=== PATIENT | female | born 1980 | race Caucasian/White ===

== ENCOUNTER 2023-06-09 16:07 | Emergency (ER) | payer OTHER, SELFPAY ==
[2023-06-09] VITALS (19 sets, daily range): BP systolic 115–134; BP diastolic 86–96; PULSE 78–111; RESP 12–26; TEMP 36.9; O2SAT 95–98; BMI 29.5
--- NOTE | 2023-06-09 16:51 | ECG_ITS ---
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
--- NOTE | 2023-06-09 16:52 | ED.CHESTPAI1 ---
HPI - Chest Pain General Chief Complaint: Chest Pain Stated Complaint: HEARTBURN Time Seen by Provider: 06/09/23 16:08 Source: patient Mode of arrival: walk-in Limitations: no limitations History of Present Illness HPI narrative: Patient is a 42-year-old female who presents to the emergency department for discomfort in the chest over the last several days. Patient states 2 to 3 days ago she developed a mild cough and then burning in the chest and throat. She states she was diagnosed with acid reflux years ago but does not take any daily medications for this. She states she has been throwing up acid and over the last day she has developed worsening chest discomfort across the entire chest that she describes as a squeezing. She still has a sensation of acid in the throat. She denies fevers, diarrhea. No shortness of breath. She has been using [id number] Tums without improvement. She is not concerned for . Related Data Previous Rx's Medication Instructions Recorded ondansetron 4 mg disintegrating 4 mg PO Q6H PRN nausea and 06/09/23 tablet vomiting #12 tabs pantoprazole 40 mg tablet,delayed 40 mg PO DAILY #7 tabs 06/09/23 release (Protonix) sucralfate 1 gram tablet (Carafate) 1 g PO Q6H PRN abdominal pain #12 06/09/23 tabs Allergies Allergy/AdvReac Type Severity Reaction Status Date / Time cephalexin [From Keflex] Allergy Unknown Verified 06/09/23 16:13 oxycodone Allergy Unknown Verified 06/09/23 16:13 Sulfa (Sulfonamide Allergy Unknown Verified 06/09/23 16:13 Antibiotics) Review of Systems ROS Constitutional Denies: fever or chills Ears, nose, mouth, and throat Reports: throat pain; Denies: nasal congestion Cardiovascular Reports: chest pain Respiratory Reports: cough; Denies: shortness of breath Gastrointestinal Reports: nausea and vomiting; Denies: abdominal pain or diarrhea Musculoskeletal Denies: back pain Integumentary/Breast Denies: rash Neurological Denies: headache Hematologic/Lymphatic Denies: easy bruising Exam Narrative Exam Narrative: Gen.: Awake, alert, in no distress Head: Normocephalic, atraumatic ENT: Moist mucous membranes Respiratory: No respiratory distress, lungs clear bilaterally Cardio: Regular rate and rhythm Gastrointestinal: Abdomen is soft, nondistended and nontender to palpation Extremities: Moves extremities equally Psych: Normal mood and affect Neuro: No focal neuro deficit Skin: Warm, dry, intact Constitutional Vital Signs, click to edit/add: Last Vital Signs Temp 98.5 F 06/09/23 16:13 Pulse 94 H 06/09/23 17:30 Resp 17 06/09/23 17:30 BP 127/88 06/09/23 17:30 Pulse Ox 98 06/09/23 16:13 O2 Del Method Room Air 06/09/23 16:13 Course Vital Signs Vital signs: Vital Signs Temperature 98.5 F 06/09/23 16:13 Pulse Rate 111 H 06/09/23 16:13 Respiratory Rate 18 06/09/23 16:13 Blood Pressure 124/96 H 06/09/23 16:13 Pulse Oximetry 98 06/09/23 16:13 Oxygen Delivery Method Room Air 06/09/23 16:13 Temperature 98.5 F 06/09/23 16:13 Pulse Rate 94 H 06/09/23 17:30 Respiratory Rate 17 06/09/23 17:30 Blood Pressure 127/88 06/09/23 17:30 Pulse Oximetry 98 06/09/23 16:13 Oxygen Delivery Method Room Air 06/09/23 16:13 MDM - Chest Pain MDM Narrative Medical decision making narrative: Lab studies including D-dimer and troponin are within normal limits. LFTs and lipase are also normal. No EKG changes noted, chest x-ray is unremarkable. Patient was treated with GI cocktail, Protonix, Carafate. Her vital signs are stable, abdomen is soft and benign and she is in no respiratory distress. She was reevaluated by attending physician prior to discharge and will be discharged home with Protonix, Carafate, Zofran. Follow-up with PCP and return to the ER if symptoms change or worsen. Medical Records Data Attestation: I reviewed the patient's medical records. Lab Data Attestation: I reviewed the patient's lab results. Labs: Lab Results 06/09/23 Range/Units 17:00 WBC 16.4 H (4.0-11.0) 10^3/uL RBC 4.64 (4.20-5.40) 10^6/uL Hgb 14.8 (12.0-16.0) g/dL Hct 44.1 (36.0-48.0) % MCV 95.0 (81.0-99.0) fL MCH 31.9 (26.7-34.0) pg MCHC 33.6 (29.9-35.2) g/dL RDW 14.1 (11.0-15.0) % Plt Count 335 (150-450) 10^3/uL MPV 9.0 L (9.5-13.5) fL Seg Neuts % (Manual) 60.0 Band Neutrophils % 2.0 (0-5) % Lymphocytes % (Manual) 22.0 (20.5-60.0) % Atypical Lymphs % (Man) 6.0 % Monocytes % (Manual) 10.0 (1.7-12.0) % Eosinophils % (Manual) 0.0 L (0.9-7.0) % Basophils % (Manual) 0.0 L (0.2-2.0) % Neutrophils # (Manual) 9.84 H (1.4-6.5) 10^3/uL Band Neutrophils # 0.3 (0.0-0.3) 10^3/uL Lymphocytes # (Manual) 3.60 (1.20-3.80) 10^3/uL Abs Atypical Lymphs Man 1.0 Monocytes # (Manual) 1.64 H (0.30-0.80) 10^3/uL Eosinophils # (Manual) 0.00 (0.00-0.70) 10^3/uL Basophils # (Manual) 0.00 (0.00-0.10) 10^3/uL Anisocytosis 1+ D-Dimer 0.34 (<=0.59) mg/L FEU Sodium 137 (136-145) mmol/L Potassium 3.9 (3.5-5.1) mmol/L Chloride 99 (98-107) mmol/L Carbon Dioxide 28.4 (21.0-32.0) mmol/L Anion Gap 13.5 BUN 22.0 H (7.0-18.0) mg/dL Creatinine 0.88 (0.55-1.02) mg/dL Est GFR ( Amer) >60 (>=60) Est GFR (Non-Af Amer) >60 (>=60) BUN/Creatinine Ratio 25.0 Glucose 95 (74-106) mg/dL Calcium 9.0 (8.5-10.1) mg/dL Total Bilirubin 0.3 (0.2-1.0) mg/dL AST 14 L (15-37) U/L ALT 26 (14-59) U/L Alkaline Phosphatase 106 (46-116) U/L Troponin I High Sens <4.0 L (4.0-51.3) pg/mL Total Protein 7.8 (6.4-8.2) g/dL Albumin 3.7 (3.4-5.0) g/dL Globulin 4.1 g/dL Albumin/Globulin Ratio 0.9 Lipase 33.0 (16.0-77.0) U/L Serum HCG, Qual Negative (NEGATIVE) Imaging Data Chest x-ray: Attestation: I have reviewed the pertinent imaging results. ECG Data Attestation: I personally reviewed and interpreted this ECG as follows: (Normal sinus with him at a rate of 99, no acute ST elevation or ectopy. EKG reviewed by attending physician) Heart Score History: Slightly/Non-Suspicious ECG: Normal Age: <45 years Risk Factors: 1 or 2 Risk Factors Troponin: <Normal Limit Total Heart Score Recommendations & Risks:: 1 Discharge Plan Discharge Chief Complaint: Chest Pain Clinical Impression: Esophagitis, Chest pain Patient Disposition: Home, Self-Care Time of Disposition Decision: 18:31 Condition: Good Prescriptions / Home Meds: New sucralfate [Carafate] 1 gram tablet 1 g PO Q6H PRN (Reason: abdominal pain) Qty: 12 0RF pantoprazole [Protonix] 40 mg tablet,delayed release (DR/EC) 40 mg PO DAILY Qty: 7 0RF ondansetron 4 mg tablet,disintegrating 4 mg PO Q6H PRN (Reason: nausea and vomiting) Qty: 12 0RF Instructions: Chest Pain (DC), Esophagitis (ED) Stand Alone Forms: Portal Instructions Referrals: Katja Ramachandran NP [Primary Care Provider] - 1 week
[2023-06-09 17:13] LABS: Hematocrit 44.1 % (36.0-48.0); Hemoglobin 14.8 g/dL (12.0-16.0); Mean Corpuscular HGB Conc 33.6 g/dL (29.9-35.2); Mean Corpuscular Hemoglobin 31.9 pg (26.7-34.0); Platelet Count 335 10^3/uL (150-450); Red Blood Count 4.64 10^6/uL (4.20-5.40); Red Cell Distribution Width 14.1 % (11.0-15.0); White Blood Count 16.4 10^3/uL (4.0-11.0)
[2023-06-09] MEDS: lidocaine HCL 15 ML, MAG HYDROX/ALUMINUM HYD/SIMETH 30 ML, HYOSCYAMINE SULFATE 0.25 MG PO (17:13)
[2023-06-09] MEDS: PANTOPRAZOLE SODIUM 40 MG VIAL IV (17:13)
[2023-06-09 17:24] LABS: Anisocytosis 1+; Band Neutrophils Absolute 0.3 10^3/uL (0.0-0.3); D Dimer 0.34 mg/L FEU (<=0.59); Monocytes Absolute Manual 1.64 10^3/uL (0.30-0.80); Segmented Neut Absolute Manual 9.84 10^3/uL (1.4-6.5)
[2023-06-09 17:26] LABS: Alanine Aminotransferase 26 U/L (14-59); Albumin Globulin Ratio 0.9; Albumin Level 3.7 g/dL (3.4-5.0); Alkaline Phosphatase 106 U/L (46-116); Anion Gap 13.5; Aspartate Amino Transferase 14 U/L (15-37); Bilirubin Total 0.3 mg/dL (0.2-1.0); Carbon Dioxide 28.4 mmol/L (21.0-32.0); Chloride 99 mmol/L (98-107); Estimated GFR (African America >60 (>=60); Estimated GFR (Non-African Ame >60 (>=60); Globulin 4.1 g/dL; Glucose 95 mg/dL (74-106); Potassium 3.9 mmol/L (3.5-5.1); Sodium 137 mmol/L (136-145); Total Protein 7.8 g/dL (6.4-8.2); Troponin I High Sensitivity <4.0 pg/mL (4.0-51.3)
--- NOTE | 2023-06-09 17:33 | PC.NURSE ---
Pt states chest is still hurting after the GI cocktail and Protonix. Endorsed to Tracey LOPEZ
--- NOTE | 2023-06-09 17:35 | XR_ITS ---
The [address] [address] Patient Name: PHIL BALL MRN: [id number] date: 1980 Sex: F Assigned Patient Location: ER Current Patient Location: ED.MAIN Accession/Order Number: [id number] Exam Date: 06/09/2023 17:39 Report Date: 06/09/2023 18:43 At the request of: URIEL NOEL Procedure: XR chest 1V EXAMINATION: XR chest 1V, , 06/09/2023 5:39 PM EST INDICATION: Chest pain HISTORY: Ordering Provider Reason for Exam: Chest pain Technologist Note: Additional: COMPARISON: XR CHEST 2 V Date 02/22/2021 TECHNIQUE: Chest x-ray: One view. FINDINGS: No pneumothorax, pleural effusion or focal airspace consolidation. Heart is normal in size. Bony thorax is unremarkable. XR/XR chest 1V IMPRESSION: No acute cardiopulmonary process. Electronically authenticated by: PANCHO POLANCO Date: 06/09/2023 18:43
[2023-06-09 17:37] LABS: HCG Qualitative NEGATIVE (NEGATIVE)
[2023-06-09] MEDS: SUCRALFATE 1 GM TABLET PO (17:50)
== END 2023-06-09 18:57 | disposition home or self-care (01) ==
PROVIDERS: Physician Assistant; Emergency Provider Emergency Medicine; PCP Nurse Practitioner
DX: K21.00 Gastro-esophageal reflux disease with esophagitis, without bleeding (principal); R07.89 Other chest pain; R11.2 Nausea with vomiting, unspecified
CPT/HCPCS: 36415; 71045; 80053; 83690; 84484; 84703; 85027; 85378; 93005; 96374; 99285

== ENCOUNTER 2023-11-06 10:38 | Emergency (ER) | payer OTHER, SELFPAY ==
[2023-11-06 10:42] VITALS: BP 140/98; PULSE 101; TEMP 37.2; O2SAT 98; BMI 29.5
--- NOTE | 2023-11-06 10:59 | ED.EXTPRO1 ---
HPI - Extremity Problem General Chief complaint: Extremity Problem, Nontraumatic Stated complaint: LOWER EXTREMITY PAIN Time Seen by Provider: 11/06/23 10:40 Source: patient Mode of arrival: walk-in Limitations: no limitations History of Present Illness HPI Narrative: 42-year-old female presents for rash on her right toes, particularly between the fourth and fifth toes. She wears steel toed shoes at work. There is been no trauma. She had been to an urgent care center and they put her on Valtrex for herpetic masoud. It has been itching and burning. Related Data Home Medications ?Medication ?Instructions ?Recorded ?Confirmed valacyclovir 1 gram tablet 1,000 mg PO Q8H 11/06/23 11/06/23 Previous Rx's ?Medication ?Instructions ?Recorded terbinafine HCl 1 % topical cream 1 applic topical BID #30 grams 11/06/23 Allergies Allergy/AdvReac Type Severity Reaction Status Date / Time cephalexin [From Keflex] Allergy Unknown Verified 06/09/23 16:13 oxycodone Allergy Unknown Verified 06/09/23 16:13 Sulfa (Sulfonamide Allergy Unknown Verified 06/09/23 16:13 Antibiotics) Review of Systems ROS Narrative A ten point review of systems is negative except as noted above. Exam Narrative Exam Narrative: Nurses note and vital signs reviewed and patient is not hypoxic. General: The patient appears well and in no apparent distress. Patient is resting comfortably on cart. Skin: Warm, dry, no pallor noted. There is erythematous rash on the toes of her right foot particularly between the fourth and fifth toes where it is moist and the skin is cracked. Head: Normocephalic, atraumatic Eye: Normal conjunctiva, no drainage Ears, Nose, Mouth, and Throat: oral mucosa is moist. Nares patent. Cardiovascular: Regular Rate and Rhythm Respiratory: Patient is in no distress, no accessory muscle use, lungs are clear to auscultation, no wheezing, rales or rhonchi Back: non-tender GI: Soft and nontender Musculoskeletal: The patient has no evidence of calf tenderness, no pitting edema, symmetrical pulses noted bilaterally Neurological: A&O, normal speech Psychiatric: Cooperative Constitutional Vital Signs, click to edit/add: Last Vital Signs Temp 98.9 F 11/06/23 10:42 Pulse 101 H 11/06/23 10:42 Resp 18 11/06/23 10:42 BP 140/98 H 11/06/23 10:42 Pulse Ox 98 11/06/23 10:42 O2 Del Method Room Air 11/06/23 10:42 Course Vital Signs Vital signs: Vital Signs Temperature 98.9 F 11/06/23 10:42 Pulse Rate 101 H 11/06/23 10:42 Respiratory Rate 18 11/06/23 10:42 Blood Pressure 140/98 H 11/06/23 10:42 Pulse Oximetry 98 11/06/23 10:42 Oxygen Delivery Method Room Air 11/06/23 10:42 Temperature 98.9 F 11/06/23 10:42 Pulse Rate 101 H 11/06/23 10:42 Respiratory Rate 18 11/06/23 10:42 Blood Pressure 140/98 H 11/06/23 10:42 Pulse Oximetry 98 11/06/23 10:42 Oxygen Delivery Method Room Air 11/06/23 10:42 MDM - Extremity (Nontraumatic) MDM Narrative Medical decision making narrative: My clinical impression is that she has tinea pedis. She is referred to podiatry and was prescribed terbinifine. Differential Diagnosis Differential diagnosis: Likely cellulitis and other (tinea pedis) Discharge Plan Discharge Stand Alone Forms: Portal Instructions Chief Complaint: Extremity Problem, Nontraumatic Clinical Impression: Tinea pedis Patient Disposition: Home, Self-Care Time of Disposition Decision: 10:55 Condition: Good Mode of Transportation: Private Vehicle Prescriptions / Home Meds: New terbinafine HCl 1 % cream 1 applic topical BID Qty: 30 1RF No Action valacyclovir 1 gram tablet 1,000 mg PO Q8H Print Language: Syriac Instructions: Skin Yeast Infection (ED) Additional Instructions: Follow-up with Dr. Spring in 2 weeks if no improvement Referrals: Katja Ramachandran NP [Primary Care Provider] - 1 week
== END 2023-11-06 11:15 | disposition home or self-care (01) ==
LOC: ER 11:17
PROVIDERS: Emergency Provider Emergency Medicine; PCP Nurse Practitioner
DX: B35.3 Tinea pedis (principal)
CPT/HCPCS: 99283

== ENCOUNTER 2023-12-28 06:55 | Inpatient (IN) | payer OTHER, SELFPAY ==
[2023-12-28] VITALS (7 sets, daily range): BP systolic 103–138; BP diastolic 60–82; PULSE 63–104; TEMP 36.7–38.4; O2SAT 93–96; BMI 29.5; BMI 30.8
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
--- NOTE | 2023-12-28 07:15 | ED.GENADUL1 ---
HPI HPI - General Adult General Chief complaint: Abdominal Pain Stated complaint: NAUSEA Time Seen by Provider: 12/28/23 07:14 Source: patient Mode of arrival: walk-in Limitations: no limitations History of Present Illness HPI narrative: This patient is here with continued chills aches and pains nausea vomiting diarrhea. She was diagnosed at a different institution yesterday as UTI and placed on nitrofurantoin. She says that she had a chest x-ray that was negative. She says she did not have any cough sore throat head cold type symptoms or any respiratory distress. She is not on any regular medications. She said she did not have any urinary symptomatology such as frequency urgency dysuria or hematuria. She does have a history of kidney stones and kidney infections but none recently. They did not do any CT imaging on her by her history and we are awaiting the old charts from that institution. She says she just feels as bad today as she did yesterday. They did give her a liter of fluids. Related Data Home Medications ?Medication ?Instructions ?Recorded ?Confirmed clindamycin HCl 300 mg capsule 300 mg PO Q8H 12/28/23 12/28/23 nitrofurantoin 100 mg PO Q12H 12/28/23 12/28/23 monohydrate/macrocrystals 100 mg capsule Allergies Allergy/AdvReac Type Severity Reaction Status Date / Time cephalexin [From Keflex] Allergy Unknown Verified 12/28/23 07:05 oxycodone Allergy Unknown Verified 12/28/23 07:05 Sulfa (Sulfonamide Allergy Unknown Verified 12/28/23 07:05 Antibiotics) Opioid HPI Opioid Management Most Recent Opioid Data: Last Pain Scale 6 12/28/23 07:42 Last ED Pain Assessment 12/28/23 07:42 Last MAR Pain Assessment 12/28/23 07:56 [facility] Surgical History (Updated 12/28/23 @ 07:08 by Jina Blake RN) H/O: hysterectomy ?Z90.710 - Acquired absence of both cervix and uterus (ICD-10) History of cholecystectomy ?Z90.49 - Acquired absence of other specified parts of digestive tract (ICD-10) Exam Narrative Exam Narrative: Awake alert pleasant says her entire body hurts not just her joints. I specifically asked her about a history of rheumatoid arthritis and she says she has no knowledge of that disease condition. On HEENT upper airway is normal there is no nasal stuffiness congestion no facial swelling no tenderness over the sinus area. She does not have a sore throat phonation deglutition and swallowing and voice are all normal. Her lungs are completely clear no wheeze rales or rhonchi there is no cough or congestion. Heart sounds are normal with no S3-S4 or murmur. Her abdominal examination is benign she has had a total abdominal hysterectomy. She had a cholecystectomy. There is no tenderness at McBurney's point. Some discomfort to deep palpation in the epigastric area only. Neurological cognition mentation are normal. She does not show any evidence of meningeal irritation or nuchal rigidity. There is no focal neurological symptomatology or deficits. Skin and integument are normal with no petechiae purpura rash or exanthem. Her joints were examined and there is no swelling arthritis pain or joint effusions at any of her major joints. Constitutional Vital Signs, click to edit/add: Last Vital Signs Temp 99.4 F 12/28/23 06:59 Pulse 104 H 12/28/23 06:59 Resp 16 12/28/23 06:59 BP 108/80 12/28/23 06:59 Pulse Ox 96 12/28/23 06:59 O2 Del Method Room Air 12/28/23 06:59 Course Vital Signs Vital signs: Vital Signs Temperature 99.4 F 12/28/23 06:59 Pulse Rate 104 H 12/28/23 06:59 Respiratory Rate 16 12/28/23 06:59 Blood Pressure 108/80 12/28/23 06:59 Pulse Oximetry 96 12/28/23 06:59 Oxygen Delivery Method Room Air 12/28/23 06:59 Temperature 99.4 F 12/28/23 06:59 Pulse Rate 104 H 12/28/23 06:59 Respiratory Rate 16 12/28/23 06:59 Blood Pressure 108/80 12/28/23 06:59 Pulse Oximetry 96 12/28/23 06:59 Oxygen Delivery Method Room Air 12/28/23 06:59 Medical Decision Making MDM Narrative Medical decision making narrative: Records were obtained from her previous study and there is no indication that there is a urinary tract infection based on studies from yesterday. A CT scan was done today to see if she has some type of obstructive uropathy with possible pyelonephritis as she does have systemic symptoms of infection/inflammation. The CT scan shows some diffuse inflammation of the right colon but no other gross abnormalities. Her white blood cell count is still elevated. Her sedimentation rate is very very critically elevated as is her CRP. I discussed this case with the on-call hospitalist he agrees that she should be admitted. She did spike a fever here again we do not have a really focus of infection this appears to be more of a inflammatory reaction. Her influenza testing and COVID was all negative yesterday. Discharge Plan Discharge Chief Complaint: Abdominal Pain Clinical Impression: Acute febrile illness Patient Disposition: Admitted as Observation Time of Disposition Decision: 08:47 Prescriptions / Home Meds: No Action clindamycin HCl 300 mg capsule 300 mg PO Q8H nitrofurantoin monohyd/m-cryst 100 mg capsule 100 mg PO Q12H Print Language: Nepali Referrals: Katja Ramachandran NP [Primary Care Provider] - 1 week
[2023-12-28] MEDS: ONDANSETRON PF 4 MG/2 ML VIAL IV ×3 (07:37→22:21)
[2023-12-28] MEDS: 0.9 % SODIUM CHLORIDE 1,000 ML 999 ML IV (07:37)
[2023-12-28 07:46] LABS: Basophils Percent Auto 0.2 % (0.2-2.0); Eosinophils Percent Auto 0.3 % (0.9-7.0); Hematocrit 41.6 % (36.0-48.0); Immature Granulocytes Abs Auto 0.07 10^3/uL (0.00-0.03); Immature Granulocytes Pct Auto 0.5 % (0.0-0.5); Lymphocytes Absolute Auto 1.3 10^3/uL (1.2-3.8); Lymphocytes Percent Auto 8.6 % (20.5-60.0); Mean Corpuscular HGB Conc 33.7 g/dL (29.9-35.2); Mean Corpuscular Hemoglobin 31.5 pg (26.7-34.0); Mean Corpuscular Volume 93.7 fL (81.0-99.0); Mean Platelet Volume 9.4 fL (9.5-13.5); Monocytes Absolute Auto 1.3 10^3/uL (0.3-0.8); Monocytes Percent Auto 8.9 % (1.7-12.0); Neutrophils Absolute Auto 11.9 10^3/uL (1.4-6.5); Neutrophils Percent Auto 81.5 % (43.0-75.0); Platelet Count 270 10^3/uL (150-450); Red Blood Count 4.44 10^6/uL (4.20-5.40); Red Cell Distribution Width 13.8 % (11.0-15.0); White Blood Count 14.5 10^3/uL (4.0-11.0)
--- NOTE | 2023-12-28 07:50 | CT_ITS ---
The [address] [address] Patient Name: PHIL BALL MRN: [id number] date: 1980 Sex: F Assigned Patient Location: ER Current Patient Location: ER Accession/Order Number: [id number] Exam Date: 12/28/2023 07:47 Report Date: 12/28/2023 08:21 At the request of: NADEEM GRAHAM Procedure: CT abdomen pelvis wo con EXAMINATION: CT abdomen pelvis wo con HISTORY: Kidney stones COMPARISON: No relevant comparison available. TECHNIQUE: Axial, Coronal, and Sagittal images were created without IV contrast. Dose reduction techniques were achieved by using automated exposure control and/or adjustment of mA and/or kV according to patient size and/or use of iterative reconstruction technique. FINDINGS: LUNG BASES: No visible pulmonary or pleural disease. LIVER: No enlargement, atrophy, abnormal density, or significant focal lesion. BILIARY: Surgical clips from cholecystectomy PANCREAS: No lesion, fluid collection, ductal dilatation, or atrophy. SPLEEN: No enlargement or focal lesion. ADRENALS: No mass or enlargement. KIDNEYS: No mass, obstruction, or calcification. BOWEL/MESENTERY: Wall thickening of the right colon with some minimal inflammatory changes. Overall nonobstructive bowel gas pattern. Normal appendix AORTA/VASCULAR: No aortic aneurysm. Moderate calcific atherosclerosis RETROPERITONEUM: No mass or adenopathy. LYMPH NODES: No adenopathy. URINARY BLADDER: No visible focal wall thickening, lesion, or calculus. PELVIC ORGANS: Hysterectomy ABDOMINAL WALL: No mass or hernia. BONES: No bony lesion or fracture. OTHER: Negative. CT/CT abdomen pelvis wo con IMPRESSION: Ascending colon inflammatory changes, consider inflammatory or infectious colitis Electronically authenticated by: MARCOS TROTTER Date: 12/28/2023 08:21
[2023-12-28] MEDS: ACETAMINOPHEN 500 MG TABLET 1000 MG PO (07:56)
[2023-12-28 08:03] LABS: C Reactive Protein 7.82 mg/dL (<=0.50)
[2023-12-28 08:06] LABS: Erythrocyte Sedimentation Rate 129 mm/hr (<=20)
[2023-12-28 08:10] LABS: Lactate/Lactic Acid 0.9 mmol/L (0.4-2.0)
[2023-12-28 08:17] LABS: Alanine Aminotransferase 29 U/L (14-59); Albumin Globulin Ratio 0.9; Albumin Level 3.5 g/dL (3.4-5.0); Alkaline Phosphatase 94 U/L (46-116); Anion Gap 14.6; Aspartate Amino Transferase 17 U/L (15-37); BUN Creatinine Ratio 12.5; Bilirubin Total 0.5 mg/dL (0.2-1.0); Calcium 8.6 mg/dL (8.5-10.1); Carbon Dioxide 24.1 mmol/L (21.0-32.0); Chloride 102 mmol/L (98-107); Estimated GFR (African America >60 (>=60); Estimated GFR (Non-African Ame >60 (>=60); Globulin 3.9 g/dL; Glucose 115 mg/dL (74-106); Potassium 3.7 mmol/L (3.5-5.1); Sodium 137 mmol/L (136-145); Total Protein 7.4 g/dL (6.4-8.2)
--- OUTSIDE RECORDS SUMMARY | 2023-12-28 09:54 | XMS_ITS | CCD ---
Author Organization [facility] InformFormerly [facility] Care Team Providers Care Color Consultant Name Role Phone Joi Rivas Unavailable MARIELENA CALVILLO Primary Care Unavailable PAY, DR ESPINOSA Attending Unavailable PAY, DR ESPINOSA Consulting Unavailable PAY, DR ESPINOSA Admitting Unavailable JOHN HAQUE Consulting Unavailable CARLA JENNINGS Consulting Unavailable Allergies Allergy Classification Reported Allergen(s) Allergy Type Date of Onset Reaction(s) Facility (3 sources) Acetaminophen / oxyCODONE Drug Allergy extreme itching [facility] Other (4 sources) Cephalexin; Translations: [Keflex] Drug Allergy hives [facility] (3 sources) gabapentin Drug Allergy Unknown [facility] [employer] [facility] Other (3 sources) Oxandrolone Drug Allergy [facility] Other (3 sources) Sulfacetamide / Sulfur Drug Allergy [facility] Other (1 source) Ciprofloxacin Drug Allergy [facility] (1 source) Desonide Drug Allergy [facility] (1 source) gabapentin Drug Allergy [facility] (1 source) Naproxen Drug Allergy [facility] (1 source) oxyCODONE Drug Allergy [facility] (1 source) Sulfonamides (Antibiotic) Drug allergy (disorder) [facility] (1 source) Vancomycin Drug Allergy [facility] Medications Current Medications Medication Drug Class(es) Dates Sig (Normalized) Sig (Original) [id number] 200 actuat albuterol 0.09 mg/actuat metered dose [...] knee] Chronic Other aftercare (1 source) Other fci (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; Translations: [OTH SHELTER CURRENT [...] (COVID-19) RNA DYLAN+probe Ql (Unsp spec) Negative [facility] Other CT CSPINE WO CONon 2 CT [...] by: CARLA JENNINGS Date: 2022-01-24 13:13 Normal [facility] Vital Signs Date Time Vital Sign Value Performing Clinician Facility 05-03-2022 15:45-0400 Body height 175.26 cm Joi Rivas Other [facility] Other 05-03-2022 15:45-0400 Body mass index (BMI) [Ratio] 29.53 kg/m2 Joi Rivas Other [facility] Other 05-03-2022 15:45-0400 Body temperature 97.5 [degF] Joi Rivas Other [facility] Other 05-03-2022 15:45-0400 Body weight 90.72 kg Joi Rivas Other [facility] Other 05-03-2022 15:45-0400 Diastolic blood pressure 82 mm[Hg] Joi Rivas Other [facility] Other 05-03-2022 15:45-0400 Respiratory rate 18 /min Joi Rivas Other [facility] Other 05-03-2022 15:45-0400 SaO2% (BldA) [Mass fraction] 98 % Joi Rivas Other [facility] Other 05-03-2022 15:45-0400 Systolic blood pressure 116 mm[Hg] Joi Rivas Other [facility] Other 04-05-2022 16:05-0400 Body height 175.26 cm Joi Jarquinault Other [facility] Other 04-05-2022 16:05-0400 Body mass index (BMI) [Ratio] 29.53 kg/m2 Joi Jarquinault Other [facility] Other 04-05-2022 16:05-0400 Body temperature 97.7 [degF] Joi Jarquinault Other [facility] Other 10-04-2022 16:05-0400 Body weight 90.72 kg Joi Rivas Other [facility] Other 04-05-2022 16:05-0400 Diastolic blood pressure 76 mm[Hg] Joi Rivas Other [facility] Other 04-05-2022 16:05-0400 Respiratory rate 18 /min Joi Rivas Other [facility] Other 04-05-2022 16:05-0400 SaO2% (BldA) [Mass fraction] 97 % Joi Rivas Other [facility] Other 04-05-2022 16:05-0400 Systolic blood pressure 107 mm[Hg] Joi Rivas Other [facility] Other 02-08-2022 12:35-0400 Body height 175.26 cm Joi Rivas Other [facility] Other 02-08-2022 12:35-0400 Body mass index (BMI) [Ratio] 29.53 kg/m2 Joi Rivas Other [facility] Other 02-08-2022 12:35-0400 Body temperature 97.5 [degF] Joi Rivas Other [facility] Other 02-08-2022 12:35-0400 Body weight 90.72 kg Joi Rivas Other [facility] Other 02-08-2022 12:35-0400 Diastolic blood pressure 75 mm[Hg] Joi Jarquinault Other [facility] Other 02-08-2022 12:35-0400 Respiratory rate 16 /min Joi Rivas Other [facility] Other 02-08-2022 12:35-0400 SaO2% (BldA) [Mass fraction] 98 % Joi Rivas Other [facility] Other 02-08-2022 12:35-0400 Systolic blood pressure 116 mm[Hg] Joi Rivas Other [facility] Other Encounters Encounter Date Encounter Type Care Provider Facility Start: 05-03-2022 End: 05-03-2022 ambulatory Joi Rivas Other [facility] Other Start: 05-03-2022 Office outpatient visit 15 minutes Joi Evelyn [facility] Start: 04-05-2022 End: 04-05-2022 ambulatory Joidonnell Rivas Other [facility] Other Start: 04-05-2022 Office outpatient visit 25 minutes Joi Evelyn [facility] Start: 02-08-2022 End: 02-08-2022 ambulatory Joidonnell Rivas Other [facility] Other Start: 02-08-2022 Office outpatient visit 15 minutes Joi Evelyn [facility] Start: 01-24-2022 End: 01-24-2022 ambulatory [employer]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 Stay away from known triggers. Follow up with primary care provider or neurology if symptoms persist as new treatment option may need to be discussed. [facility] Other Evaluation note 04-05-2022 Note Date & [...] weeks for the cough to go away [facility] Other Evaluation note 02-08-2022 Note Date & [...] care provider if no improvement of symptoms. [facility] Other History general Narrative - Reported Note Date & Type Note Facility History general Narrative - Reported Type Medical History insomnia Medical History anxiety Medical History migraine headache Surgical History hysterectomy Surgical History cholecystectomy Surgical History right foot surgery x2 Surgical History rotator cuff Hospitalization History see above [facility] Other Summary Purpose Family History No Family History Records Found Advance Directives No Advanced Directives Records Found Additional Source Comments REASON FOR VISIT (unrecogniz ed section and content) RIGHT AND LEFT EAR PAIN, DEN IES OTHER SXSNASAL CONGESTION x 10 MONTHSH/A INFORMATION SOURCE (unrecogn ized section and content) DATE CREATED AUTHOR 03/02/2022 [facility] FOR RECORDS PERTAINING TO PATIENTS WHO ARE [...] BE BASED ON THE PRIMARY CLINICAL RECORDS. [employer] provides no warranty or guarantee of the accuracy or completeness of information in this document.
[2023-12-28] MEDS: ENOXAPARIN SODIUM 40 MG/0.4 ML SYRINGE SUBQ (11:26)
[2023-12-28] MEDS: LACTATED RINGER'S SOLUTION 1,000 ML 125 ML IV ×2 (11:26→19:34)
--- NOTE | 2023-12-28 12:14 | P.HP_ITS ---
<Statement entered by Kyle Mary MD - 12/28/23 23:00> This documentation has been reviewed and approved. Pt seen and examined while in ER. agree with plan and treatment as provided by E LEARNING DEVELOPER check on labs later HPI H&P: HPI History of Present Illness Chief complaint: NAUSEA, ACUTE FEBRILE ILLNESS Narrative: 12/28/23 1135 This is a 43-year-old female patient with a benign past medical history who presented to the ED today complaining of a 2-day course of myalgias, vomiting, and diarrhea. The patient reports awakening on Monday morning (2 days ago) with severe body aches and then subsequent vomiting. She attempted to go to work on Monday but began to vomit again and returned home. She experienced emesis x 2 episodes on Monday and that has not recurred. On Monday night she began to experience mild diarrhea. By Monday (yesterday) afternoon she was experiencing severe diarrhea that was watery and explosive and sometimes and she was incontinent of stool. She did not note blood in her stool but states that it is orangeish in color. In addition to her myalgias, she was also experiencing colicky abdominal pain that was worse prior to episodes of diarrhea. She did not take her temperature at home, but suspected that she was febrile as she was periodically sweating and was experiencing chills. She presented to the ED in [place] yester morning and they did not find any acute abnormalities other than suspected UTI and discharged her home with antibiotics. As her myalgias persisted and her diarrhea worsened after she returned home she presented to the ED at this facility today for further evaluation. Workup in the ED revealed leukocytosis (WBC 14.5), elevated inflammatory markers (ESR 129, CRP 7.82). Lactic acid was normal and her chemistries were unremarkable. She developed a fever of 101.1 after arrival in the ED. A CT of the abdomen revealed ascending colon inflammatory changes with inflammatory infectious colitis suspected. The patient is being admitted to the hospitalist service in observation for acute colitis, suspected infectious etiology. At the time of my exam the patient is resting in bed. She continues to complain of myalgias. She denies nausea at this time but is experiencing colicky abdomin al discomfort. On exam there is mild rebound on the right side which is consistent with the area of inflammation on CT imaging. She has diffuse, mild abdominal tenderness. She will be treated with IV Cipro and Flagyl and LR IV fluids for clinical dehydration. ADDENDUM 1700: GI panel resulted positive for C-diff and Salmonella. As the pt is immunocompetent and younger than 50, we will d/c IV /Cipro and Flagyl as antibiotic treatment for salmonella is likely not necessary. PO Vanco QID has been initiated for C-diff. We will consider adding cipro back on her regimen if she is not starting to improve tomorrow, but this will prolong the length of treatment needed to treat her c-diff adequately. Opioid HPI Opioid Management Most Recent Pain and Opioid Data: Last Pain Scale 6 12/28/23 16:38 Last Pain Assessment 12/28/23 17:31 Last ED Pain Assessment 12/28/23 07:42 Last MAR Pain Assessment 12/28/23 13:46 Last ORT Total Score 3 12/28/23 09:48 Last ORT Risk Category Low Risk 12/28/23 09:48 Review of Systems ROS Status of ROS 10 or more systems reviewed and unremark able except as noted in h istory and below PFSH PFSH Medical History (Updated 12/28/23 @ 15:50 by Hetal Logan NP) Migraines ?G43.909 - Migraine, unspecified, not intractable, without status migrainosus (ICD-10) Surgical History H/O: hysterectomy ?Z90.710 - Acquired absence of both cervix and uterus (ICD-10) History of cholecystectomy ?Z90.49 - Acquired absence of other specified parts of digestive tract (ICD- 10) Family History (Updated 12/28/23 @ 09:55 by Adela Melchor RN) Mother Family history of COPD (chronic obstructive pulmonary disease) Family history of hypertension Family history of myocardial infarction Family history of stroke Father Family history of COPD (chronic obstructive pulmonary disease) Family history of diabetes mellitus Family history of hypertension Grandmother Family history of cancer Social History (Updated 12/28/23 @ 09:56 by Adela Melchor RN) Within the past year, how often did you have a drink containing alcohol: never Score interpretation: A score less than 3 is consistent with normal alcohol consumption. Smoking status: Current every day smoker Non-prescribed substance use: denies use Highest level of school completed/degree received: some college, no degree Meds Home Medications and Allergies Home Medications ?Medication ?Instructions ?Recorded ?Confirmed ?Type clindamycin HCl 300 mg capsule 300 mg PO Q8H 12/28/23 12/28/23 History nitrofurantoin 100 mg PO Q12H 12/28/23 12/28/23 History monohydrate/macrocrystals 100 mg capsule Allergies Allergy/AdvReac Type Severity Reaction Status Date / Time cephalexin [From Keflex] Allergy Unknown Verified 12/28/23 07:05 oxycodone Allergy Unknown Verified 12/28/23 07:05 Sulfa (Sulfonamide Allergy Unknown Verified 12/28/23 07:05 Antibiotics) Exam Constitutional Vital Signs, click to edit/add: Last Vital Signs Temp 98.3 F 12/28/23 09:48 Pulse 67 12/28/23 09:48 Resp 18 12/28/23 09:48 BP 117/75 12/28/23 09:48 Pulse Ox 93 L 12/28/23 09:48 O2 Del Method Room Air 12/28/23 09:48 Common normals: no apparent distress, oriented x3, alert and well nourished General appearance: cooperative Orientation/consciousness: Yes awake HENMT Common normals: normocephalic, head/scalp atraumatic, hearing grossly normal bilaterally, external nose normal and moist oral mucous membranes Eye Common normals: PERRL, EOMs intact bilaterally, conjunctivae normal and no scleral icterus Alignment: alignment normal Eyelid: eyelids normal Neck & C-Spine Common normals: full ROM, supple and no JVD Chest Common normals: inspection of chest normal Chest: symmetrical chest wall rise Respiratory Common normals: normal respiratory effort, no retractions and no use of accessory muscles Effort & inspection: able to speak in complete sentences Auscultation: rales (Faint, RLL) Cardio Common normals: no JVD, regular rate, regular rhythm, S1 normal heart sound, S2 normal heart sound, no gallops, no clicks, no murmurs, no rub and peripheral pulses 2+ throughout GI Common normals: soft to palpation, no hepatosplenomegaly, no masses and no bruits Inspection: normal to inspection; no abdominal distension Auscultation: hyperactive bowel sounds (R>L) Palpation: soft, tender (Diffuse, slightly worse in epigastric area) and rebound tenderness present (Mild, greatest on R side) Bladder/kidney exam: bladder normal to palpation Back & Pelvis Common normals: thoracic and lumbar spine normal to inspection Extremity Common normals: normal capillary refill and no pedal edema General: normal exam except as noted; no clubbing and no cyanosis Neuro Bibi Coma Scale: GCS not evaluated Common normals: CN's II-XII intact bilaterally, moves all extremities, no focal motor deficits and no sensory deficits noted Speech: speech normal Motor exam: strength 5/5 throughout Psych Common normals: mental status grossly normal, thought process normal, affect normal and activity/motor behavior normal Results Labs Labs: Short CBC 12/28/23 Range/Units 07:30 WBC 14.5 H (4.0-11.0) 10^3/uL Hgb 14.0 (12.0-16.0) g/dL Hct 41.6 (36.0-48.0) % Plt Count 270 (150-450) 10^3/uL BMP 12/28/23 07:30 Sodium 137 Potassium 3.7 Chloride 102 Carbon Dioxide 24.1 BUN 10.0 Creatinine 0.80 Glucose 115 H Calcium 8.6 Liver Function 12/28/23 Range/Units 07:30 Total Bilirubin 0.5 (0.2-1.0) mg/dL AST 17 (15-37) U/L ALT 29 (14-59) U/L Alkaline Phosphatase 94 (46-116) U/L Albumin 3.5 (3.4-5.0) g/dL Pulse Oximetry Attestation: I have reviewed the pertinent pulse oximetry results. Imaging CT scan - abdomen: Attestation: I have reviewed the pertinent imaging results. Radiologist's impression: IMPRESSION: Ascending colon inflammatory changes, consider inflammatory or infectious colitis Assessment and Plan Assessment and Plan (1) Colitis: Assessment and Plan: Acute * Adm observation * CT imaging indicates colitis w/ inflammatory changes * Suspected infectious etiology in setting of fever and leukocytosis and absence of bloody diarrhea, but inflammatory remains within the differential * IVPB Cipro and Flagyl - for broad gram neg and anaerobic coverage * Stool studies including occult blood, GI panel ordered (includes culture) * Consider general surgery consult pending clinical course * Toradol and Tylenol PRN for pain - may alternate for improved pain control * LR at 125/hr, 1 liter bolus given in ED * CBC, CMP, CRP, ESR daily (2) Sepsis: Assessment and Plan: Acute * AEB * SEP Criteria: Temp 101.1, HR 104, WBC 14,500. Source - colitis * No hypoxia, renal or liver dysfunction, hypotension or AMS noted - remains at significant risk for further end organ damage * BC x 2 obtained in ED - pending * IVF as above
[2023-12-28] MEDS: METRONIDAZOLE/SODIUM CHLORIDE 500 MG/100 ML PREMIX 100 MG IV (12:28)
[2023-12-28] MEDS: KETOROLAC TROMETHAMINE 30 MG/ML VIAL IVP ×2 (12:28→19:38)
[2023-12-28] MEDS: CIPROFLOXACIN IN 5 % DEXTROSE 400 MG/200 ML PIGGYBACK 200 MG IV (13:43)
[2023-12-28 14:39] LABS: Adenovirus F 40/41 NOT DETECTED (NOT DETECTE); Astrovirus NOT DETECTED (NOT DETECTE); Campylobacter NOT DETECTED (NOT DETECTE); Cryptosporidium NOT DETECTED (NOT DETECTE); Cyclospora cayetanensis NOT DETECTED (NOT DETECTE); Entamoeba histolytica NOT DETECTED (NOT DETECTE); Enteroaggregative E.coli NOT DETECTED (NOT DETECTE); Enteropathogenic E.coli NOT DETECTED (NOT DETECTE); Enterotoxigenic E. coli NOT DETECTED (NOT DETECTE); Giardia lamblia NOT DETECTED (NOT DETECTE); Norovirus GI/GII NOT DETECTED (NOT DETECTE); Plesiomonas shigelloides NOT DETECTED (NOT DETECTE); Rotavirus A NOT DETECTED (NOT DETECTE); Sapovirus NOT DETECTED (NOT DETECTE); Shiga-like toxin-producing E.C NOT DETECTED (NOT DETECTE); Shigella/Enteroinvasive E.coli NOT DETECTED (NOT DETECTE); Vibrio NOT DETECTED (NOT DETECTE); Vibrio cholerae NOT DETECTED (NOT DETECTE); Yersinia enterocolitica NOT DETECTED (NOT DETECTE)
[2023-12-28 16:06] LABS: Internal Control Within Normal Limits; Occult Blood Positive
[2023-12-28 16:30] LABS: Salmonella DETECTED (NOT DETECTE)
[2023-12-28] MEDS: VANCOMYCIN HCL 7,500 MG/150 ML BOTTLE 125 MG PO ×2 (17:47→22:20)
[2023-12-29] VITALS: BP 102/72; PULSE 64; TEMP 36.7; O2SAT 96
[2023-12-29] MEDS: KETOROLAC TROMETHAMINE 30 MG/ML VIAL IVP ×4 (03:11→23:26)
[2023-12-29] MEDS: LACTATED RINGER'S SOLUTION 1,000 ML 125 ML IV (03:11)
[2023-12-29 04:19] VITALS: BP 119/77; PULSE 68; TEMP 37; O2SAT 96
[2023-12-29 04:32] LABS: Basophils Percent Auto 0.2 % (0.2-2.0); Eosinophils Absolute Auto 0.1 10^3/uL (0.0-0.7); Eosinophils Percent Auto 0.9 % (0.9-7.0); Hematocrit 35.4 % (36.0-48.0); Hemoglobin 11.8 g/dL (12.0-16.0); Immature Granulocytes Abs Auto 0.03 10^3/uL (0.00-0.03); Immature Granulocytes Pct Auto 0.3 % (0.0-0.5); Lymphocytes Absolute Auto 1.5 10^3/uL (1.2-3.8); Lymphocytes Percent Auto 17.1 % (20.5-60.0); Mean Corpuscular HGB Conc 33.3 g/dL (29.9-35.2); Mean Corpuscular Hemoglobin 31.2 pg (26.7-34.0); Mean Corpuscular Volume 93.7 fL (81.0-99.0); Mean Platelet Volume 9.6 fL (9.5-13.5); Monocytes Absolute Auto 1.2 10^3/uL (0.3-0.8); Neutrophils Absolute Auto 6.1 10^3/uL (1.4-6.5); Neutrophils Percent Auto 68.5 % (43.0-75.0); Platelet Count 218 10^3/uL (150-450); Red Blood Count 3.78 10^6/uL (4.20-5.40); Red Cell Distribution Width 13.6 % (11.0-15.0); White Blood Count 8.9 10^3/uL (4.0-11.0)
[2023-12-29 04:51] LABS: C Reactive Protein 7.15 mg/dL (<=0.50); Erythrocyte Sedimentation Rate 79 mm/hr (<=20)
[2023-12-29 04:57] LABS: Alanine Aminotransferase 27 U/L (14-59); Albumin Globulin Ratio 0.9; Albumin Level 2.8 g/dL (3.4-5.0); Alkaline Phosphatase 73 U/L (46-116); Anion Gap 12.1; Aspartate Amino Transferase 18 U/L (15-37); BUN Creatinine Ratio 9.9; Bilirubin Total 0.4 mg/dL (0.2-1.0); Calcium 8.3 mg/dL (8.5-10.1); Carbon Dioxide 24.4 mmol/L (21.0-32.0); Chloride 106 mmol/L (98-107); Estimated GFR (African America >60 (>=60); Estimated GFR (Non-African Ame >60 (>=60); Globulin 3.2 g/dL; Glucose 100 mg/dL (74-106); Potassium 3.5 mmol/L (3.5-5.1); Sodium 139 mmol/L (136-145)
[2023-12-29] MEDS: ONDANSETRON PF 4 MG/2 ML VIAL IV ×2 (06:41→20:07)
[2023-12-29] MEDS: VANCOMYCIN HCL 7,500 MG/150 ML BOTTLE 125 MG PO ×4 (06:42→23:21)
--- NOTE | 2023-12-29 10:26 | P.PN_ITS ---
<Statement entered by Kyle Mary MD - 12/29/23 11:37> This documentation has been reviewed and approved. She was seen and evaluated independently. Patient with significant abdominal pain. Persisting diarrhea approximately every 30 minutes. With the Salmonella and C. difficile colitis complicating the diarrhea, medically stable but if she did return home is highly likely she will become more dehydration. So she should stay for additional therapy. Agree with input and findings provided by nurse practitioner. Progress Note: Subjective Subjective Interval history: 12/29/23 0820 The patient is resting in bed at the time of my exam. She reports feeling like I been run over by a [employer] truck . She continues to have multiple loose stools overnight, with nursing documenting 11 stools overnight since admission. Her myalgias persist but are slightly improved today. No fever was documented overnight. A GI panel resulted yesterday afternoon that was positive for both Salmonella and C. difficile infection. We opted not to treat her Salmonella due to her competent immune system and younger age in the setting of concurrent C. difficile infection where broad-spectrum antibiotics would be contraindicated. Her Cipro and Flagyl dosing were discontinued yesterday and she has been initiated on p.o. vancomycin. The patient reports that she has been dosed with 3 courses of clindamycin by podiatry since October (R foot infection) with her last course of starting about 1 week ago. Her current C. difficile infection may be related to clindamycin dosing. She has no known history of previous C. difficile infection or colonization. As the patient's p.o. intake is very limited and she has frequent diarrhea, she is at significant risk for dehydration and requires IV fluids. She will remain in the hospital and will be changed to inpatient status today. Will advance her diet as tolerated but continue IV fluids at a more gentle rate. Exam Constitutional Vital Signs, click to edit/add: Last Vital Signs Temp 98.6 F 12/29/23 04:19 Pulse 68 12/29/23 04:19 Resp 18 12/29/23 08:00 BP 119/77 12/29/23 04:19 Pulse Ox 96 12/29/23 04:19 O2 Del Method Room Air 12/29/23 04:19 Common normals: no apparent distress, oriented x3 and alert General appearance: cooperative Orientation/consciousness: Yes awake HENMT Common normals: normocephalic, head/scalp atraumatic and hearing grossly normal bilaterally Eye Common normals: PERRL, EOMs intact bilaterally, conjunctivae normal and no scleral icterus General eye: normal appearance of both eyes Chest Common normals: inspection of chest normal Chest: symmetrical chest wall rise Respiratory Common normals: normal respiratory effort, no use of accessory muscles and clear to auscultation bilaterally Effort & inspection: able to speak in complete sentences Cardio Common normals: regular rate, regular rhythm, S1 normal heart sound, S2 normal heart sound, no murmurs and peripheral pulses 2+ throughout GI Common normals: Normal to inspection, nondistended, normoactive bowel sounds present, soft to palpation and no hepatosplenomegaly Palpation: tender (Diffuse, greatest on the right) and rebound tenderness present (RLQ) Bladder/kidney exam: bladder normal to palpation Extremity Common normals: normal to inspection and no calf tenderness General: no clubbing, no cyanosis and no edema Neuro Common normals: CN's II-XII intact bilaterally, moves all extremities, no focal motor deficits and no sensory deficits noted Psych Common normals: mental status grossly normal Progress Note: Objective Labs Labs: Short CBC 12/29/23 Range/Units 04:06 WBC 8.9 (4.0-11.0) 10^3/uL Hgb 11.8 L (12.0-16.0) g/dL Hct 35.4 L (36.0-48.0) % Plt Count 218 (150-450) 10^3/uL BMP 12/29/23 04:06 Sodium 139 Potassium 3.5 Chloride 106 Carbon Dioxide 24.4 BUN 7.0 Creatinine 0.71 Glucose 100 Calcium 8.3 L Liver Function 12/29/23 Range/Units 04:06 Total Bilirubin 0.4 (0.2-1.0) mg/dL AST 18 (15-37) U/L ALT 27 (14-59) U/L Alkaline Phosphatase 73 (46-116) U/L Albumin 2.8 L (3.4-5.0) g/dL Progress Note: A&P Assessment and Plan (1) Colitis due to Clostridium difficile: Assessment and Plan: Acute * Adm to inpatient * We expect at least a 2 midnight stay for medically necessary hospital care including IVF, close nursing monitoring of output, antibiotics * GI Panel positive for C-diff and Salmonella * No prior c-diff infection or known exposure * No contact w/ reptiles or known undercooked food * D/C'd IVPB Cipro and Flagyl * PO Vanco 125 mg QID * Consider general surgery consult pending clinical course * Continue Toradol and Tylenol PRN for pain - may alternate for improved pain control * Continue LR at more gentle rate of 85 ml/hr * Leukocytosis resolved, ESR/CRP trending down, A-febrile overnight * CBC, CMP, CRP, ESR daily (2) Sepsis: Assessment and Plan: Acute * AEB * SEP Criteria: Temp 101.1, HR 104, WBC 14,500. Source - C-diff colitis * BC x 2 obtained in ED - remain pending * IVF as above (3) Anemia: Assessment and Plan: Acute * Hgb 11.8 today, down from 14.0 on admission * Likely 2/2 to hemodilution, but FOB was heme positive so slow GI bleeding cannot be ruled out likely 2/2 acute colitis * No obvious bloody stools noted overnight * No hematuria reported * Not on anticoagulation * Consider transfusion for Hgb < 7 * Consider surgery c/s for possible colonoscopy pending clinical course * Plan to delay until after acute c-diff infection has resolved if possible * CBC daily (4) Foot infection: Assessment and Plan: Chronic * Follows outpatient with Dr Spring * Prescribed 3 courses of clindamycin since October, most recently 1 week ago * Lesions appear to be healing well with only small opening without erythema, ashkan quach * Hold clindamycin for now in setting of acute C-diff colitis
[2023-12-29] MEDS: ENOXAPARIN SODIUM 40 MG/0.4 ML SYRINGE SUBQ (11:35)
--- NOTE | 2023-12-29 11:54 | CM.NOTE ---
Rounds made with Dr. Mary. Reviewed labs, stool studies, and plan of care with Temitope. Temitope verbalized understanding. Temitope remains w bouts of diarrhea. No anticipated discharge today.
[2023-12-29] MEDS: LACTATED RINGER'S SOLUTION 1,000 ML 85 ML IV ×2 (12:15→23:26)
[2023-12-29 14:00] VITALS: BP 124/81; PULSE 66; TEMP 36.9; O2SAT 96
[2023-12-29 22:00] VITALS: BP 136/82; PULSE 69; TEMP 36.9; O2SAT 95
[2023-12-30 05:17] LABS: Erythrocyte Sedimentation Rate 70 mm/hr (<=20)
[2023-12-30 05:19] LABS: Basophils Percent Auto 0.2 % (0.2-2.0); Eosinophils Absolute Auto 0.2 10^3/uL (0.0-0.7); Eosinophils Percent Auto 2.4 % (0.9-7.0); Hematocrit 34.8 % (36.0-48.0); Hemoglobin 11.6 g/dL (12.0-16.0); Immature Granulocytes Abs Auto 0.03 10^3/uL (0.00-0.03); Immature Granulocytes Pct Auto 0.4 % (0.0-0.5); Lymphocytes Absolute Auto 2.5 10^3/uL (1.2-3.8); Lymphocytes Percent Auto 30.4 % (20.5-60.0); Mean Corpuscular HGB Conc 33.3 g/dL (29.9-35.2); Mean Corpuscular Hemoglobin 31.4 pg (26.7-34.0); Mean Corpuscular Volume 94.1 fL (81.0-99.0); Mean Platelet Volume 9.4 fL (9.5-13.5); Monocytes Absolute Auto 1.3 10^3/uL (0.3-0.8); Monocytes Percent Auto 15.7 % (1.7-12.0); Neutrophils Absolute Auto 4.3 10^3/uL (1.4-6.5); Neutrophils Percent Auto 50.9 % (43.0-75.0); Platelet Count 241 10^3/uL (150-450); Red Cell Distribution Width 13.4 % (11.0-15.0); White Blood Count 8.4 10^3/uL (4.0-11.0)
[2023-12-30] MEDS: ONDANSETRON PF 4 MG/2 ML VIAL IV (05:34)
[2023-12-30 05:40] LABS: Alanine Aminotransferase 29 U/L (14-59); Albumin Globulin Ratio 0.8; Albumin Level 2.8 g/dL (3.4-5.0); Alkaline Phosphatase 73 U/L (46-116); Anion Gap 12.1; Aspartate Amino Transferase 20 U/L (15-37); BUN Creatinine Ratio 8.1; Bilirubin Total 0.4 mg/dL (0.2-1.0); C Reactive Protein 5.94 mg/dL (<=0.50); Calcium 8.3 mg/dL (8.5-10.1); Carbon Dioxide 27.4 mmol/L (21.0-32.0); Chloride 105 mmol/L (98-107); Estimated GFR (African America >60 (>=60); Estimated GFR (Non-African Ame >60 (>=60); Globulin 3.3 g/dL; Glucose 88 mg/dL (74-106); Potassium 3.5 mmol/L (3.5-5.1); Sodium 141 mmol/L (136-145); Total Protein 6.1 g/dL (6.4-8.2)
[2023-12-30 05:42] VITALS: BP 134/81; PULSE 66; TEMP 36.8; O2SAT 95
[2023-12-30] MEDS: VANCOMYCIN HCL 7,500 MG/150 ML BOTTLE 125 MG PO (07:18)
[2023-12-30] MEDS: HYOSCYAMINE SULFATE 0.125 MG TAB.SUBL SL (10:47)
--- NOTE | 2023-12-30 12:33 | P.DS_ITS ---
DS: Providers Provider Date of admission: 12/29/23 10:36 Primary care physician: Katja Ramachandran NP Admitting clinician: Kyle Mary Attending physician on admission: Kyle Mary Attending physician on discharge: Shaikh Arielle Discharging clinician: Shaikh Arielle Anticipated date of discharge: 12/30/23 DS: Diagnosis Discharge Diagnosis (1) Colitis due to Clostridium difficile: Assessment and plan: Likely due to recent antibiotic use. Stable for discharge on oral vancomycin. (2) Sepsis: Assessment and plan: Hemodynamically stable. Secondary to C. difficile. Stable for discharge on oral vancomycin Qualifiers: Sepsis type: sepsis due to unspecified organism Sepsis acute organ dysfunction status: without acute organ dysfunction Qualified Code(s): A41.9 - Sepsis, unspecified organism (3) Anemia: Assessment and plan: Chronic. Stable. Outpatient follow-up Qualifiers: Anemia type: unspecified type Qualified Code(s): D64.9 - Anemia, unspecified (4) Obese: Assessment and plan: Will benefit from weight loss. Defer to PCP Qualifiers: Obesity type: due to excess calories Obesity classification: adult class 1 (BMI 30 - 34.9) Serious obesity comorbidity presence: without serious comorbidity Body mass index: BMI 30.0-30.9 Qualified Code(s): E66.09 - Other obesity due to excess calories; Z68.30 - Body mass index [BMI] 30.0-30.9, adult DS: Summary Hospital Course Hospital Course: 43-year-old female presented with nausea, vomiting, body aches, generalized weakness and diarrhea for 2 days she reported diarrhea was watery and explosive in nature with few episodes of fecal incontinence. Patient was febrile upon arrival to ER with elevated white count and inflammatory markers and was ad mitted for sepsis secondary to colitis. GI panel was positive for C. difficile and Salmonella. CT abdomen pelvis showed inflammatory changes along ascending colitis. It was decided to forego treatment for Salmonella as salmonella is typically self limiting in immunocompetent adults. Patient was treated with oral vancomycin with improvement in her symptoms. She is still feeling nauseous but able to keep food down. Her diarrhea has improved. Patient is medically stable for discharge on oral vancomycin. She was instructed to follow-up with PCP in 1 week. She was also educated on worrisome signs and symptoms that should prompt her to seek urgent care and ER. Status at Discharge Functional status at discharge: independent ambulation Overall status at discharge: patient is back to baseline Time Spent with Patient Time attestation: Total time spent providing and/or coordinating discharge services: Exam Constitutional Vital Signs, click to edit/add: Last Vital Signs Temp 98.3 F 12/30/23 05:42 Pulse 66 12/30/23 05:42 Resp 18 12/30/23 07:24 BP 134/81 12/30/23 05:42 Pulse Ox 95 12/30/23 05:42 O2 Del Method Room Air 12/30/23 05:42 Documenting provider has reviewed patient's vital signs: yes Common normals: no apparent distress and oriented x3 General appearance: cooperative Respiratory Common normals: normal respiratory effort and clear to auscultation bilaterally Effort & inspection: able to speak in complete sentences Auscultation: clear to auscultation bilaterally Cardio Common normals: regular rate, S1 normal heart sound and S2 normal heart sound Rate: regular rate Heart sounds: S1 normal and S2 normal GI Common normals: Normal to inspection, nondistended, normoactive bowel sounds present, soft to palpation, non-tender and no hepatosplenomegaly Palpation: soft and no hepatosplenomegaly Neuro Common normals: oriented x3, moves all extremities and no focal motor deficits Psych Common normals: mental status grossly normal, denies hallucinations, denies homicidal ideation and denies suicidal ideation DS: Data Data Completed and Pending Labs on day of discharge: Labs from last 24 hours 12/30/23 12/28/23 04:45 13:50 WBC 8.4 RBC 3.70 L Hgb 11.6 L Hct 34.8 L MCV 94.1 MCH 31.4 MCHC 33.3 RDW 13.4 Plt Count 241 MPV 9.4 L Neut % (Auto) 50.9 Lymph % (Auto) 30.4 [place] % (Auto) 15.7 H Eos % (Auto) 2.4 Baso % (Auto) 0.2 Neut # (Auto) 4.3 Lymph # (Auto) 2.5 [place] # (Auto) 1.3 H Eos # (Auto) 0.2 Baso # (Auto) 0.0 Abs Immat Gran (auto) 0.03 Imm/Tot Granulo (auto) 0.4 ESR 70 H Sodium 141 Potassium 3.5 Chloride 105 Carbon Dioxide 27.4 Anion Gap 12.1 BUN 6.0 L Creatinine 0.74 Est GFR ( Amer) >60 Est GFR (Non-Af Amer) >60 BUN/Creatinine Ratio 8.1 Glucose 88 Calcium 8.3 L Total Bilirubin 0.4 AST 20 ALT 29 Alkaline Phosphatase 73 C-Reactive Protein 5.94 H Total Protein 6.1 L Albumin 2.8 L Globulin 3.3 Albumin/Globulin Ratio 0.8 Stool Salmonella PCR Detected A* Preliminary micro results at discharge 12/28/23 09:20 Blood Culture Result 1 - Preliminary Blood NO GROWTH AT 36-48 HOURS. FINAL TO FOLLOW. 12/28/23 09:26 - Preliminary Blood NO GROWTH AT 36-48 HOURS. FINAL TO FOLLOW. Discharge Plan Discharge Disposition: Home, Self-Care Discharge Medications: New vancomycin 125 mg capsule 125 mg PO Q6H 10 Days Qty: 40 0RF ondansetron HCl 4 mg tablet 4 mg PO Q8H PRN (Reason: nausea and vomiting) 5 Days Qty: 10 0RF hyoscyamine sulfate [Levsin/SL] 0.125 mg tablet, sublingual 0.125 mg PO Q8H PRN (Reason: abdominal discomfort) Qty: 10 0RF Discontinued clindamycin HCl 300 mg capsule 300 mg PO Q8H Patient Comments: 12/21/23 -12/28/23 nitrofurantoin monohyd/m-cryst 100 mg capsule 100 mg PO Q12H Patient Comments: 12/26/26-01/02/24 Activity: increase activity as tolerated Diet: advance to your usual diet Print Language: Pashto Patient Instructions: C. Diff (Clostridioides Difficile) Infection (DC), Salmonella Infection (GEN) Forms: Portal Instructions Follow Up Appointments: Please call and schedule a follow up appointment with your PCP to be seen withing 5-7 days
--- NOTE | 2024-01-01 11:31 | CM.DCFOLLOWU ---
1st attempt 01/01/24
--- NOTE | 2024-01-02 15:57 | CM.DCFOLLOWU ---
Person spoke with: patient How are you feeling? like trash How is your pain? headaches Did you understand your discharge instructions? yes Do you have any questions about your discharge instructions? did ask if she can become septic from C-diff, case management assisted with this question and answered patient Were you given any prescriptions at discharge? yes Were you able to get your prescriptions filled? yes Do you understand how to take your medications as ordered? yes Do you have any questions about your follow up appointment and do you plan to keep your follow up appointment? no questions, follow up tomorrow with DATABASE OPERATOR at Dr. Mary's office tomorrow morning Is there anything else that you would like to discuss? Advised pt to go to ED if continues to worsen Questions/Comments/Concerns/Other: no
== END 2023-12-30 12:57 | disposition home or self-care (01) | DRG 872 ==
LOC: ER 08:47 → MS 09:46
PROVIDERS: Nurse Practitioner; Admitting Provider Internal Medicine; Emergency Provider Emergency Medicine Emergency Medical Services; PCP Nurse Practitioner; Visit Provider Internal Medicine
DX: A41.89 Other specified sepsis (principal); A04.72 Enterocolitis due to Clostridium difficile, not specified as recurrent; A02.9 Salmonella infection, unspecified; D64.9 Anemia, unspecified; E66.9 Obesity, unspecified; E66.09 Other obesity due to excess calories; Z68.30 Body mass index [BMI] 30.0-30.9, adult; L08.9 Local infection of the skin and subcutaneous tissue, unspecified; F17.200 Nicotine dependence, unspecified, uncomplicated
CPT/HCPCS: 36415; 74176; 80053; 83605; 84145; 85025; 85652; 86140; 87040; 87045; 87507; 96361; 96365; 96367; 96372; 96375; 96376; 99285; G0328; G0378; J0744; J1650; J1836; J1885; J2405

== ENCOUNTER 2024-02-05 15:59 | Outpatient (OUT) | payer OTHER, SELFPAY ==
[2024-02-05 16:51] LABS: Bilirubin Urine NEGATIVE (NEGATIVE); Blood Urine SMALL (NEGATIVE); Clarity Urine CLEAR (CLEAR); Color Urine LT. YELLOW (YELLOW); Glucose Urine UA NEGATIVE (NEGATIVE); Ketones Urine NEGATIVE (NEGATIVE); Leukocyte Esterase Urine NEGATIVE (NEGATIVE); Nitrite Urine NEGATIVE (NEGATIVE); Protein Urine NEGATIVE (NEG/TRACE); Specific Gravity Urine 1.015 (1.005-1.025); Urobilinogen Urine 0.2 EU/dL (0.2-1.0)
[2024-02-05 16:58] LABS: Alanine Aminotransferase 29 U/L (14-59); Albumin Globulin Ratio 1.2; Albumin Level 3.6 g/dL (3.4-5.0); Alkaline Phosphatase 92 U/L (46-116); Anion Gap 12.6; Aspartate Amino Transferase 18 U/L (15-37); BUN Creatinine Ratio 19.2; Basophils Percent Auto 0.2 % (0.2-2.0); Bilirubin Total 0.3 mg/dL (0.2-1.0); Calcium 8.6 mg/dL (8.5-10.1); Carbon Dioxide 26.1 mmol/L (21.0-32.0); Chloride 102 mmol/L (98-107); Eosinophils Absolute Auto 0.3 10^3/uL (0.0-0.7); Eosinophils Percent Auto 2.1 % (0.9-7.0); Estimated GFR (African America >60 (>=60); Estimated GFR (Non-African Ame >60 (>=60); Globulin 3.1 g/dL; Glucose 90 mg/dL (74-106); Hematocrit 37.5 % (36.0-48.0); Hemoglobin 12.7 g/dL (12.0-16.0); Immature Granulocytes Abs Auto 0.03 10^3/uL (0.00-0.03); Immature Granulocytes Pct Auto 0.2 % (0.0-0.5); Lymphocytes Absolute Auto 4.5 10^3/uL (1.2-3.8); Lymphocytes Percent Auto 36.5 % (20.5-60.0); Mean Corpuscular HGB Conc 33.9 g/dL (29.9-35.2); Mean Corpuscular Hemoglobin 31.8 pg (26.7-34.0); Mean Platelet Volume 9.6 fL (9.5-13.5); Monocytes Absolute Auto 0.9 10^3/uL (0.3-0.8); Monocytes Percent Auto 7.6 % (1.7-12.0); Neutrophils Absolute Auto 6.5 10^3/uL (1.4-6.5); Neutrophils Percent Auto 53.4 % (43.0-75.0); Platelet Count 329 10^3/uL (150-450); Potassium 3.7 mmol/L (3.5-5.1); Red Blood Count 3.99 10^6/uL (4.20-5.40); Red Cell Distribution Width 14.1 % (11.0-15.0); Sodium 137 mmol/L (136-145); Total Protein 6.7 g/dL (6.4-8.2); White Blood Count 12.2 10^3/uL (4.0-11.0)
== END 2024-02-05 16:00 | disposition home or self-care (01) ==
LOC: LAB 16:00
PROVIDERS: PCP Nurse Practitioner Family; Visit Provider Nurse Practitioner Family
DX: R19.7 Diarrhea, unspecified (principal)
CPT/HCPCS: 36415; 80053; 81003; 85025

== ENCOUNTER 2024-02-08 09:49 | Emergency (ER) | payer OTHER, SELFPAY ==
[2024-02-08 09:53] VITALS: BP 122/90; PULSE 78; TEMP 36.7; O2SAT 98; BMI 30.6
--- OUTSIDE RECORDS SUMMARY | 2024-02-08 10:04 | XMS_ITS | CCD ---
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 Name Role Phone Evelyn Joi Unavailable AICHHOLZ, PREP MANAGER AARON Primary Care Unavailable PAY, DR ESPINOSA Attending Unavailable PAY, DR ESPINOSA Consulting Unavailable PAY, DR ESPINOSA Admitting Unavailable GARLAND, JOHN KENNEDY Consulting Unavailable CARLA JENNINGS Consulting Unavailable AICHHOLZ, AARON J Primary Care Unavailable QUEEN, MARCOS Attending Unavailable QUEEN, MARCOS Attending Unavailable QUEEN, MARCOS Referring Unavailable AICHHOLZ, AARON J Primary Care Unavailable JOE MUSA Referring Unavailable AICHHOLZ, AARON J Primary Care Unavailable Shwetha Mayberry Attending Unavailable JOE MUSA Referring Unavailable Allergies Allergy Classification Reported Allergen(s) Allergy Type Date of Onset Reaction(s) Facility (3 sources) Acetaminophen / oxyCODONE Drug Allergy extreme itching [facility] [place] Other (4 sources) Cephalexin; Translations: [Keflex] Drug Allergy hives [facility] Repository (3 sources) gabapentin Drug Allergy Unknown [facility] [place] Other (3 sources) Oxandrolone Drug Allergy [facility] Other (3 sources) Sulfacetamide / Sulfur Drug Allergy [facility] [place] Other (1 source) Ciprofloxacin Drug Allergy [facility] Repository (1 source) Desonide Drug Allergy [facility] Repository (1 source) gabapentin Drug Allergy [facility] Repository (1 source) Naproxen Drug Allergy [facility] Repository (2 sources) oxyCODONE; Translations: [OXYCODONE] Drug Allergy 03-20-20 [facility] Repository (1 source) Sulfonamides (Antibiotic) Drug allergy (disorder) [facility] Repository (1 source) Vancomycin Drug Allergy [facility] Repository (1 source) Cephalexin; Translations: [CEPHALEXIN] Drug Allergy 03-20-20 [facility] Repository (1 source) Sulfonamides (Antibiotic); Translations: [SULFA (SULFONAMIDE ANTIBIOTICS)] Propensity to adverse reactions to drug (disorder) 03-20-20 [facility] Repository Medications Current Medications Medication Drug Class(es) Dates Sig (Normalized) Sig (Original) [id number] 200 actuat albuterol 0.09 mg/actuat metered dose [...] Active Problems Problem Classification Problem Date Documented Da te Episodic/Chronic Chronic obstructive pulmonary disease and bronchiectasis [...] knee] Chronic Other aftercare (1 source) Other jail (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; Translations: [OTH HEM INSPECTOR CURRENT DRUG THERAPY] Onset: 01-27-2022 Episodic Other gastrointestinal disorders (1 source) Diarrhea, unspecified; Translations: [Diarrhea, unspecified] Onset: 01-18-2024 Episodic Other injuries and conditions due to external causes (1 source) Other specified injuries of head, initial encounter; Translations: [OTH SPEC INJURIES HEAD INITIAL ENC] Onset: 01-27-2022 Episodic Other nervous system disorders (3 sources) Chronic pain; Translations: [Other chronic pain] Chronic Other upper respiratory infections (1 source) Acute ethmoidal sinusitis, unspecified Episodic Residual codes; unclassified (1 source) Chills (without fever); Translations: [Chills (without fever)] Onset: 12-27-2023 Episodic Spondylosis; intervertebral disc disorders; other back problems (3 sources) Degeneration of cervical intervertebral disc; Translations: [Other cervical disc degeneration, unspecified cervical region] Chronic Spondylosis; intervertebral disc disorders; other back problems (1 source) Cervicalgia; Translations: [CERVICALGIA] Onset: 01-27-2022 Episodic Substance-related disorders (1 source) Nicotine dependence, cigarettes, uncomplicated; Translations: [NICOTINE DEPEND CIGARETTES UNCOMP] Onset: 01-27-2022 Chronic Unclassified (1 source) Generalized Body Aches Onset: 12-27-2023 Unclassified (1 source) Body Aches, Nausea Onset: 12-27-2023 Past or Other Problems Problem Classification Problem Date Documented Da te Episodic/Chronic Otitis media and related conditions (1 source) Otitis media, unspecified, bilateral Onset: 02-08-2022 Resolved: 02-08-2022 Episodic Results Test Name Value Interpretation Reference Range Facility Bacteria identified Cx Nom ( Stl)on 01-18-2024 STOOL CULT FINAL REPORT PENDING Normal [facility] Comment on above: Performed By: #### C HAILEY, TATYANA, 37426-2, 77939-6, THYR #### [facility] ([id number]) [address] [place] [address], [place] [address] STOOL CULT PRELIM REPORT SEE NOTE Abnormal [facility] Comment on above: Result Comment: NOTE Results for Preliminary: Culture POSITIVE for Salmonella species Culture negative for Shigella species Culture negative for Escherichia coli serotype O157 Culture negative for Vibrio, Aeromonas, and Plesiomonas species. Culture negative for Campylobacter species Enrichment broth not available. Recovery of Shigella may be impaired. Identification based on MALDI-TOF and phenotypic methods. This test was developed and its performance characteristics determined by [facility]. It has not been cleared or approved by the U.S. Food and Drug Administration. This test was performed in a CLIA-certified laboratory and is intended for clinical purposes. Performed By: [facility] [address] [place] [address] Dining Host: Fransisco Encarnacion MD, PhD CLIA Number: [id number] Performed By: #### C BCA, CMP, 55424-3, 19635-9, THYR #### [facility] ([id number]) [address] [place] [address]90[address] C DIFFICILE BY PCRon 024 C. difficile toxin genes DYLAN+probe Ql (Stl) TOXIGENIC C DIFF Positive (qualifier value) 027 NAP1 Negative (qualifier value) Normal [facility] Comment on above: Performed By: #### C HAILEY, CMP, 58871-8, , THYR #### [facility] ([id number]) [address] [place] [address] 45907 CBC AND AUTO DIFFon 12-27-19 ABSOLUTE BASOPHIL 0.0 X10E9/L Normal 0.0-0.2 [facility] Comment on above: Performed By: #### C HAILEY, CMP, , , THYR #### [facility] ([id number]) [address] [place] [address]61 ABSOLUTE NEUTROPHIL 8.7 X10E9/L High 1.5-6.6 [facility] Comment on above: Performed By: #### Moi HART, CMP, , , THYR #### [facility] ([id number]) [address] [place] [address] 24684 Basophils/100 WBC (Bld) 0.4 % Normal [facility] Comment on above: Performed By: #### Moi BCA, CMP, , , THYR #### [facility] ([id number]) [address] [place] [address] 28384 Eosinophils (Bld) [#/Vol] 0.1 10*3/uL Normal 0.0-0.4 [facility] Comment on above: Performed By: #### Moi BCA, CMP, 78881-1, , THYR #### [facility] ([id number]) [address] [place] [address] 11327 Eosinophils/100 WBC (Bld) 0.8 % Normal [facility] Comment on above: Performed By: #### C BCA, CMP, 89807-3, , THYR #### [facility] ([id number]) [address] [place] [address] 55790 Erythrocyte distribution width (RBC) [Ratio] 14.5 % Normal 11.5-15.0 [facility] Comment on above: Performed By: #### Moi BCA, CMP, , , THYR #### [facility] ([id number]) [address] [place] [address] 36087 Hematocrit (Bld) [Volume fraction] 40.7 % Normal 35-47 [facility] Comment on above: Performed By: #### Moi BCA, CMP, , , THYR #### [facility] ([id number]) [address] [place] [address] 17419 Hemoglobin (Bld) [Mass/Vol] 14.4 g/dL Normal 11.7-15.5 [facility] Comment on above: Performed By: #### Moi BCA, CMP, , , THYR #### [facility] ([id number]) [address] [place] [address] 11689 Lymphocytes (Bld) [#/Vol] 2.0 10*3/uL Normal 1.0-3.5 [facility] Comment on above: Performed By: #### Moi BCA, CMP, 23902-2, , THYR #### [facility] ([id number]) [address] [place] [address] 80974 Lymphocytes/100 WBC (Bld) 16.4 % Normal [facility] Comment on above: Performed By: #### Moi BCA, CMP, , , THYR #### [facility] ([id number]) [address] [place] [address] 50636 MCH (RBC) [Entitic mass] 31.9 pg Normal 27-34 [facility] Comment on above: Performed By: #### C BCA, CMP, 85404-3, , THYR #### [facility] ([id number]) [address] [place] [address] 77434 MCHC (RBC) [Mass/Vol] 35.2 g/dL Normal 32-36 [facility] Comment on above: Performed By: #### C BCA, CMP, 92273-0, , THYR #### [facility] ([id number]) [address] [place] [address] 99488 MCV (RBC) [Entitic vol] 91 fL Normal 80-100 [facility] Comment on above: Performed By: #### Moi BCA, CMP, , , THYR #### [facility] ([id number]) [address] [place] [address] 09642 Monocytes (Bld) [#/Vol] 1.4 10*3/uL High 0-0.9 [facility] Comment on above: Performed By: #### Moi BCA, CMP, 62353-0, , THYR #### [facility] ([id number]) [address] [place] [address] 30140 Monocytes/100 WBC (Bld) 11.4 % Normal [facility] Comment on above: Performed By: #### C BCA, CMP, 69112-4, , THYR #### [facility] ([id number]) [address] [place] [address] 51629 Neutrophils/100 WBC (Bld) 71.0 % Normal [facility] Comment on above: Performed By: #### Moi BCA, CMP, 71867-3, , THYR #### [facility] ([id number]) [address] [place] [address] 13017 Platelet mean volume (Bld) [Entitic vol] 7.4 fL Normal 7-12 [facility] Comment on above: Performed By: #### C BCA, CMP, 14296-9, , THYR #### [facility] ([id number]) [address] [place] [address] 16270 Platelets (Bld) [#/Vol] 280 10*3/uL Normal 150-450 [facility] Comment on above: Performed By: #### C BCA, CMP, 11982-8, , THYR #### [facility] ([id number]) [address] [place] [address] 85016 RBC COUNT 4.49 X10E12/L Normal 3.80-5.20 [facility] Comment on above: Performed By: #### C BCA, CMP, 61489-1, , THYR #### [facility] ([id number]) [address] [place] [address] 49787 WBC (Bld) [#/Vol] 12.3 10*3/uL High 4.0-11.0 [facility] Comment on above: Performed By: #### C BCA, CMP, 86514-3, , THYR #### [facility] ([id number]) [address] [place] [address] 72619 COMPREHENSIVE METABOLIC PANE Atif 12-27-2023 Albumin [Mass/Vol] 4.0 g/dL Normal 3.2-5.3 [facility] Comment on above: Performed By: #### C BCA, CMP, 79048-4, , THYR #### [facility] ([id number]) [address] [place] [address] 58373 ALP [Catalytic activity/Vol] 80 U/L Normal 39-130 [facility] Comment on above: Performed By: #### C BCA, CMP, 40750-7, , THYR #### [facility] ([id number]) [address] [place] [address] 24992 ALT [Catalytic activity/Vol] 23 U/L Normal 0-31 [facility] Comment on above: Performed By: #### C BCA, CMP, 54264-5, , THYR #### [facility] ([id number]) [address] [place] [address] 28024 Anion gap [Moles/Vol] 9 mmol/L Normal 5-15 [facility] Comment on above: Performed By: #### C BCA, CMP, 73331-2, , THYR #### [facility] ([id number]) [address] [place] [address] 00912 AST [Catalytic activity/Vol] 20 U/L Normal 0-41 [facility] Comment on above: Performed By: #### C BCA, CMP, 83487-6, , THYR #### [facility] ([id number]) [address] [place] [address] 63418 Bilirubin [Mass/Vol] 0.4 mg/dL Normal 0.3-1.2 [facility] Comment on above: Performed By: #### C BCA, CMP, 53419-4, , THYR #### [facility] ([id number]) [address] [place] [address] 59575 Calcium [Mass/Vol] 8.6 mg/dL Normal 8.5-10.5 [facility] Comment on above: Performed By: #### C BCA, CMP, 39495-5, , THYR #### [facility] ([id number]) [address] [place] [address] 20324 Chloride [Moles/Vol] 106 mmol/L Normal 98-109 [facility] Comment on above: Performed By: #### C BCA, CMP, 06569-8, , THYR #### [facility] ([id number]) [address] [place] [address] 52312 CO2 [Moles/Vol] 21 mmol/L Low 22-32 [facility] Comment on above: Performed By: #### C BCA, CMP, , , THYR #### [facility] ([id number]) [address] [place] [address] 51803 Creatinine [Mass/Vol] 0.79 mg/dL Normal 0.40-1.00 [facility] Comment on above: Result Comment: METH OD TRACEABLE TO IDMS STANDARD Performed By: #### C BCA, CMP, , , THYR #### [facility] ([id number]) [address] [place] [address] 14478 eGFR (CKD-EPI) NON-RACE DEPENDENT >90 Normal >59 [facility] Comment on above: Result Comment: Reported eGFR is based on the CKD-EPI 2020 equation that does not use a race coefficient. Performed By: #### C BCA, CMP, , , THYR #### [facility] ([id number]) [address] [place] [address] 01295 Glucose [Mass/Vol] 108 mg/dL High 65-99 [facility] Comment on above: Performed By: #### C BCA, CMP, , , THYR #### [facility] ([id number]) [address] [place] [address] 26169 Potassium [Moles/Vol] 3.8 mmol/L Normal 3.5-5.0 [facility] Comment on above: Performed By: #### C BCA, CMP, , , THYR #### [facility] ([id number]) [address] [place] [address] 85423 Protein [Mass/Vol] 7.4 g/dL Normal 6.0-8.0 [facility] Comment on above: Performed By: #### C BCA, CMP, 81350-3, , THYR #### [facility] ([id number]) [address] [place] [address] 79409 Sodium [Moles/Vol] 136 mmol/L Normal 134-146 [facility] Comment on above: Performed By: #### C BCA, CMP, 84513-7, , THYR #### [facility] ([id number]) [address] [place] [address] 08059 Urea nitrogen [Mass/Vol] 11 mg/dL Normal 5-23 [facility] Comment on above: Performed By: #### C BCA, CMP, 54976-8, , THYR #### [facility] ([id number]) [address] [place] [address] 86920 HCG ( test) Ql (U)o n 12-27-2023 Beta HCG ( test) Ql (U) Negative Normal NEG [facility] Comment on above: Performed By: #### 2 106-3 #### [facility] ([id number]) [address] [place] [address] 53435 Lactate (P barbara) [Moles/Vol]o n 12-27-2023 LACTATE W/REFLEX 0.8 mmol/L Normal 0.4-2.0 [facility] Comment on above: Result Comment: Result did not trigger repeat Lactate, re-order if needed. Performed By: #### C BCA, CMP, 45677-0, , THYR #### [facility] ([id number]) [address] [place] [address] 65238 MAGNESIUMon 12-27-2023 Magnesium [Mass/Vol] 2.1 mg/dL Normal 1.8-2.6 [facility] Comment on above: Performed By: #### C BCA, [facility], 10483-7, 58172-9, THYR #### [facility] ([id number]) [address] [place] [facility] [place] [address] SARS/FLU A+B/RSV by NAAT/Mol ecularon 12-27-2023 SARS/FLU A+B/RSV by NAAT/Molecular FLU A PCR Negative (qualifier value) FLU B PCR Negative (qualifier value) RSV by PCR Negative (qualifier value) SARS CoV 2 Not detected (qualifier value) NOTE The Xpert Xpress SARS-CoV-2/Flu/RSV Plus test is a rapid, multiplexed real-time RT-PCR test intended for the simultaneous qualitative detection and differentiation of SARS-CoV-2, influenza A, influenza B and respiratory syncytial virus (RSV) viral RNA from individuals suspected of respiratory viral infection consistent with COVID-19 by their healthcare provider. This test has not been validated in asymptomatic patients. The Xpert Xpress SARS-CoV-2 test is intended for use by qualified and trained operators who are performing tests using either [employer] or [employer] systems and is limited to laboratories that meet the CLIA requirements to perform high and moderate complexity tests. The Xpert Xpress SARS-CoV-2/Flu/RSV Plus is only for use under the Food and Drug Administration's Emergency Use Authorization. Results are for the simultaneous detection and differentiation of SARS-CoV-2, influenza A, influenza B and RSV nucleic acids in clinical specimens. SARS-CoV-2, influenza A, influenza B and RSV RNA identified by this test are generally detectable in upper respiratory samples during the acute phase of infection. Positive results are indicative of the presence of the identified virus, but do not rule out bacterial infection or co-infection with other pathogens not detected by this test. Clinical correlation with patient history and other diagnostic information is necessary to determine patient infection status. The agent detected may not be the definite cause of disease. Negative results do not preclude SARS-CoV-2, influenza A, influenza B and RSV infection and should not be used as the sole basis for treatment or other patient management decisions. Negative results must be combined with clinical observations, patient history and epidemiological information. An Invalid result may occur with specimen-associated inhibition unable to be resolved with specimen repeat. Fact Sheet for Healthcare Providers: https://www.fda.gov/ media/129471/downloa d Fact Sheet for Patients: https://www.fda.gov/ media/522645/downloa d Normal [facility] Comment on above: Performed By: #### C OVFLR #### [facility] ([id number]) [address] [place] [address] 41853 THYROID PROFILEon 12-27-2023 Free T4 [Mass/Vol] 0.74 ng/dL Normal 0.61-1.60 [facility] Comment on above: Performed By: #### C BCA, CMP, 64630-6, 96610-0, THYR #### [facility] ([id number]) [address] [place] [address] 97657 TSH 1.38 uIU/mL Normal 0.49-4.67 [facility] Comment on above: Performed By: #### C BCA, CMP, 47466-4, , THYR #### [facility] ([id number]) [address] [place] [address] 87810 URINE CULTUREon 12-27-2023 Bacteria identified Cx Nom (U) CULTURE RESULTS 10-50,000 ORGANISMS/mL NORMAL UROGENITAL TAVON Normal [facility] Comment on above: Performed By: #### 6 30-4 #### [facility] ([id number]) [address] [facility], [address] [place] [address] URN MACROSCOPIC NURon 2023 BILIRUBIN LYNETTE Small Abnormal NEG [facility] Comment on above: Performed By: #### N UM #### [facility] ([id number]) [address] [place] [address] 43653 BLOOD/HGB LYNETTE Large Abnormal NEG [facility] Comment on above: Performed By: #### N UM #### [facility] ([id number]) [address] [place] [address] [place] [address] GLUCOSE LYNETTE Negative Normal NEG [facility] Comment on above: Performed By: #### N UM #### [facility] ([id number]) [address] [place] [address] [place] [address] KETONES LYNETTE Negative Normal NEG [facility] Comment on above: Performed By: #### N UM #### [facility] ([id number]) [address] [place] [address] [place] [address] LEUKOCYTE ESTERASE LYNETTE Negative Normal NEG [facility] Comment on above: Performed By: #### N UM #### [facility] ([id number]) [address] [place] [address] [place] [address] NITRITE LYNETTE Negative Normal NEG [facility] Comment on above: Performed By: #### N UM #### [facility] ([id number]) [address] [place] [address] [place] [address] PH LYNETTE 6.0 Normal 5.0-8.5 [facility] Comment on above: Performed By: #### N UM #### [facility] ([id number]) [address] [place] [address] [place] [address] PROTEIN LYNETTE 30 mg/dL Abnormal NEG [facility] Comment on above: Performed By: #### N UM #### [facility] ([id number]) [address] [place] [address] [place] [address] SPECIFIC GRAVITY LYNETTE >=1.030 Normal 1.003-1.035 [facility] Comment on above: Performed By: #### N UM #### [facility] ([id number]) [address] [place] [address] [place] [address] UROBILINOGEN LYNETTE 0.2 eu/dL Normal <1.1 [facility] Comment on above: Performed By: #### N UM #### [facility] ([id number]) [address] [facility] [place] [facility] [place] [address] XR CHEST 2 VWSon 12-27-2023 XR CHEST 2 VWS XR CHEST 2 VWS PA and lateral chest: HISTORY: Cough. Generalized weakness. 2 views the chest are obtained. Cardiac and mediastinal contours are within normal limits. Lungs are clear. There is no vascular congestion, effusion, or pneumothorax. Osseous structures appear intact. IMPRESSION: No acute findings. Finalized by Jerry Reno MD on 12/27/2023 7:52 AM Normal [facility] SARS-CoV-2 (COVID-19) RNA NA A+probe Ql (Resp)on 04-05-2022 SARS-CoV-2 (COVID-19) RNA DYLAN+probe Ql (Unsp spec) Negative [facility] Other CT CSPINE WO CONon 2 CT [...] by: CARLA JENNINGS Date: 2022-01-24 13:13 Normal [facility] Vital Signs Date Time Vital Sign Value Performing Clinician Facility 05-03-2022 15:45-0400 Body height 175.26 cm Joi Rivas Other [facility] Other 05-03-2022 15:45-0400 Body mass index (BMI) [Ratio] 29.53 kg/m2 Joi Jarquinault Other [facility] Other 05-03-2022 15:45-0400 Body temperature 97.5 [degF] Joi Jarquinault Other [facility] Other 05-03-2022 15:45-0400 Body weight 90.72 kg Joi Jarquinault Other [facility] Other 05-03-2022 15:45-0400 Diastolic blood pressure 82 mm[Hg] Joi Jarquinault Other [facility] Other 05-03-2022 15:45-0400 Respiratory rate 18 /min Joi Jarquinault Other [facility] Other 05-03-2022 15:45-0400 SaO2% (BldA) [Mass fraction] 98 % Joi Jarquinault Other [facility] Other 05-03-2022 15:45-0400 Systolic blood pressure 116 mm[Hg] Joi Evelyn Other [facility] Other 04-05-2022 16:05-0400 Body height 175.26 cm Joi Rivas Other [facility] Other 04-05-2022 16:05-0400 Body mass index (BMI) [Ratio] 29.53 kg/m2 Joi Rivas Other [facility] Other 04-05-2022 16:05-0400 Body temperature 97.7 [degF] Joi Rivas Other [facility] Other 04-05-2022 16:05-0400 Body weight 90.72 kg Joi Rivas Other [facility] Other 04-05-2022 16:05-0400 Diastolic blood pressure 76 mm[Hg] Joi Rivas Other [facility] Other 04-05-2022 16:05-0400 Respiratory rate 18 /min Joi Rivas Other [facility] Other 04-05-2022 16:05-0400 SaO2% (BldA) [Mass fraction] 97 % Joi Rivas Other [facility] Other 04-05-2022 16:05-0400 Systolic blood pressure 107 mm[Hg] Joi Jarquinault Other [facility] Other 02-08-2022 12:35-0400 Body height 175.26 cm Joi Jarquinault Other [facility] Other 02-08-2022 12:35-0400 Body mass index (BMI) [Ratio] 29.53 kg/m2 Joi Rivas Other [facility] Other 02-08-2022 12:35-0400 Body temperature 97.5 [degF] Joi Rivas Other [facility] Other 02-08-2022 12:35-0400 Body weight 90.72 kg Joi Rivas Other [facility] Other 02-08-2022 12:35-0400 Diastolic blood pressure 75 mm[Hg] Joi Rivas Other [facility] Other 02-08-2022 12:35-0400 Respiratory rate 16 /min Joi Rivas Other [facility] Other 02-08-2022 12:35-0400 SaO2% (BldA) [Mass fraction] 98 % Joi Rivas Other [facility] Other 02-08-2022 12:35-0400 Systolic blood pressure 116 mm[Hg] Joi Rivas Other [facility] Other Encounters Encounter Date Encounter Type Care Provider Facility Start: 02-14-2024 ambulatory Shwetha Smith lity:Carl Start: 01-31-2024 ambulatory Shwetha Paris y:Carl Start: 01-18-2024 End: 01-18-2024 ambulatory JOE MUSA [facility] Start: 12-27-2023 End: 12-28-2023 Emergency department patient visit MARCOS QUEEN [facility] Start: 05-03-2022 End: 05-03-2022 ambulatory Joi Rivas Other [facility] Other Start: 05-03-2022 Office outpatient visit 15 minutes Joi Rivas [facility] Start: 04-05-2022 End: 04-05-2022 ambulatory Joi Rivas Other [facility] Other Start: 04-05-2022 Office outpatient visit 25 minutes Joidonnell Rivas [facility] Start: 02-08-2022 End: 02-08-2022 ambulatory Joi Rivas Other [facility] Other Start: 02-08-2022 Office outpatient visit 15 minutes Joi Rivas [facility] Start: 01-24-2022 End: 01-24-2022 ambulatory MARIELENA KATZANANicolasa Facility: Payers Date Payer Category Payer Unknown [id number] 1980 Unknown [id number] [id number] 1980 Unknown [id number] 2.16.8 [id number] 1980 Unknown [id number] 2.16.8 [id number] 1980 Unknown [id number] 2.16.8 [id number] 1959 Unknown [id number] 2.16.8 [id number] Social History Date Type Detail Facility Unknown if ever smoked [facility] Other Sex Assigned At Sex Assigned At Bir th [facility] Other Evaluation note 05-03-2022 Note Date & Type Note Facility 05-03-2022 Evaluation note Encounter Date Diagnosis Assessment Notes May, 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 Stay away from known triggers. Follow up with primary care provider or neurology if symptoms persist as new treatment option may need to be discussed. [facility] Other Evaluation note 04-05-2022 Note Date & [...] weeks for the cough to go away [facility] Other Evaluation note 02-08-2022 Note Date & [...] care provider if no improvement of symptoms. [facility] Other History general Narrative - Reported Note Date & Type Note Facility History general Narrative - Reported Type Medical History insomnia Medical History anxiety Medical History migraine headache Surgical History hysterectomy Surgical History cholecystectomy Surgical History right foot surgery x2 Surgical History rotator cuff Hospitalization History see above [facility] Other Summary Purpose Family History No Family History Records FoundNo Family History Records FoundNo Family History Records Found Advance Directives No Advanced Directives Records FoundNo Advanced Directives Records FoundNo Advanced Directives Records Found Additional Source Comments REASON FOR VISIT (unrecogniz ed section and content) RIGHT AND LEFT EAR PAIN, DEN IES OTHER SXSNASAL CONGESTION x 10 MONTHSH/A INFORMATION SOURCE (unrecogn ized section and content) DATE CREATED AUTHOR 03/02/2022 [facility] DATE CREATED AUTHOR AUTHOR'S ORGANIZ ATION 01/26/2024 [facility] DATE CREATED AUTHOR AUTHOR'S ORGANIZ ATION 02/02/2024 [facility] FOR RECORDS PERTAINING TO PATIENTS WHO [...] BE BASED ON THE PRIMARY CLINICAL RECORDS. [employer] [facility]. provides no warranty or guarantee of the accuracy or completeness of information in this document.
--- NOTE | 2024-02-08 10:07 | CT_ITS ---
[address] [address] Patient Name: PHIL BALL MRN: [id number] date: 1980 Sex: F Assigned Patient Location: ER Current Patient Location: [facility] Accession/Order Number: [id number] Exam Date: 02/08/2024 10:40 Report Date: 02/08/2024 11:30 At the request of: FAHAD MURRAY Procedure: CT abdomen pelvis w con EXAMINATION: CT abdomen pelvis w con HISTORY: Right sided pain, being treated for C. difficile COMPARISON: No relevant comparison available. TECHNIQUE: CT images were created with IV contrast. Axial, Coronal, and Sagittal images. Dose reduction techniques were achieved by using automated exposure control and/or adjustment of mA and/or kV according to patient size and/or use of iterative reconstruction technique. FINDINGS: LUNG BASES: 5 mm left lower lobe subpleural pulmonary nodule axial image #2, nonspecific LIVER: Diffuse hypoattenuation of the liver consistent with hepatic steatosis. BILIARY: Surgical clips from cholecystectomy PANCREAS: No lesion, fluid collection, ductal dilatation, or atrophy. SPLEEN: No enlargement or focal lesion. ADRENALS: No mass or enlargement. KIDNEYS: No mass, obstruction, or calcification. BOWEL/MESENTERY: No visible mass, obstruction, or bowel wall thickening. Normal appendix AORTA/VASCULAR: No aortic aneurysm. Moderate calcific atherosclerosis RETROPERITONEUM: No mass or adenopathy. LYMPH NODES: No adenopathy. URINARY BLADDER: No visible focal wall thickening, lesion, or calculus. PELVIC ORGANS: No visible mass. Pelvic organs appropriate for patient age. ABDOMINAL WALL: No mass or hernia. BONES: No bony lesion or fracture. OTHER: Negative. CT/CT abdomen pelvis w con IMPRESSION: No acute abnormality Electronically authenticated by: MARCOS TROTTER Date: 02/08/2024 11:30
--- NOTE | 2024-02-08 10:07 | ED_ITS ---
HPI - Abdominal Pain General Chief Complaint: Abdominal Pain Stated Complaint: ABDOMINAL PAIN/ BACK PAIN Time Seen by Provider: 02/08/24 09:51 Source: patient Mode of arrival: walk-in Limitations: no limitations History of Present Illness HPI narrative: 43-year-old female presents for abdominal pain. Its on the right side and she has had this for few weeks and it has been getting worse. She is currently being treated for C. difficile, for 2 months. She continues to have diarrhea. No fever or vomiting but she is nauseous. Related Data Previous Rx's ?Medication ?Instructions ?Recorded hyoscyamine sulfate 0.125 mg 0.125 mg PO Q8H PRN abdominal 12/30/23 sublingual tablet (Levsin/SL) discomfort #10 tabs ondansetron HCl 4 mg tablet 4 mg PO Q8H PRN nausea and 12/30/23 vomiting 5 days #10 tabs vancomycin 125 mg capsule 125 mg PO Q6H 10 days #40 caps 12/30/23 dicyclomine 10 mg capsule 10 mg PO QID PRN abdominal pain 02/08/24 #20 caps Allergies Allergy/AdvReac Type Severity Reaction Status Date / Time cephalexin [From Keflex] Allergy Unknown Verified 12/28/23 07:05 oxycodone Allergy Unknown Verified 12/28/23 07:05 Sulfa (Sulfonamide Allergy Unknown Verified 12/28/23 07:05 Antibiotics) Review of Systems ROS Narrative A ten point review of systems is negative except as noted above. [facility] Medical History (Updated 02/08/24 @ 11:55 by Fran Reyes MD) Anemia ?D64.9 - Anemia, unspecified (ICD-10) Colitis due to Clostridium difficile ?A04.72 - Enterocolitis due to Clostridium difficile, not specified as recurrent (ICD-10) Obese ?E66.9 - Obesity, unspecified (ICD-10) Foot infection ?L08.9 - Local infection of the skin and subcutaneous tissue, unspecified (ICD-10) Migraines ?G43.909 - Migraine, unspecified, not intractable, without status migrainosus (ICD-10) Surgical History H/O: hysterectomy ?Z90.710 - Acquired absence of both cervix and uterus (ICD-10) History of cholecystectomy ?Z90.49 - Acquired absence of other specified parts of digestive tract (ICD- 10) Family History (Updated 12/28/23 @ 09:55 by Adela Melchor RN) Mother Family history of COPD (chronic obstructive pulmonary disease) Family history of hypertension Family history of myocardial infarction Family history of stroke Father Family history of COPD (chronic obstructive pulmonary disease) Family history of diabetes mellitus Family history of hypertension Grandmother Family history of cancer Social History (Updated 12/28/23 @ 09:56 by Adela Melchor RN) Within the past year, how often did you have a drink containing alcohol: never Score interpretation: A score less than 3 is consistent with normal alcohol consumption. Smoking status: Current every day smoker Non-prescribed substance use: denies use Highest level of school completed/degree received: some college, no degree Exam Narrative Exam Narrative: Nurses note and vital signs reviewed and patient is not hypoxic. General: The patient appears well and in no apparent distress. Patient is rest ing comfortably on cart. Skin: Warm, dry, no pallor noted. There is no rash noted. Head: Normocephalic, atraumatic Eye: Normal conjunctiva, no drainage Ears, Nose, Mouth, and Throat: oral mucosa is moist. Nares patent Cardiovascular: Regular Rate and Rhythm Respiratory: Patient is in no distress, no accessory muscle use, lungs are clear to auscultation, no wheezing, rales or rhonchi Back: non-tender GI: Normal bowel sounds, tenderness present on the right side of the abdomen without rebound or mass Musculoskeletal: The patient has no evidence of calf tenderness, no pitting edema, symmetrical pulses noted bilaterally Neurological: A&O, normal speech Psychiatric: Cooperative Constitutional Vital Signs, click to edit/add: Last Vital Signs Temp 98.1 F 02/08/24 09:53 Pulse 78 02/08/24 09:53 Resp 17 02/08/24 09:53 BP 122/90 02/08/24 09:53 Pulse Ox 98 02/08/24 09:53 O2 Del Method Room Air 02/08/24 09:53 Course Vital Signs Vital signs: Vital Signs Temperature 98.1 F 02/08/24 09:53 Pulse Rate 78 02/08/24 09:53 Respiratory Rate 17 02/08/24 09:53 Blood Pressure 122/90 02/08/24 09:53 Pulse Oximetry 98 02/08/24 09:53 Oxygen Delivery Method Room Air 02/08/24 09:53 Temperature 98.1 F 02/08/24 09:53 Pulse Rate 78 02/08/24 09:53 Respiratory Rate 17 02/08/24 09:53 Blood Pressure 122/90 02/08/24 09:53 Pulse Oximetry 98 02/08/24 09:53 Oxygen Delivery Method Room Air 02/08/24 09:53 MDM - Abdominal Pain MDM Narrative Medical decision making narrative: CT scan is normal and blood work is essentially normal as well. WBC 9.9. Should be treated symptomatically and is able to be discharged home. Follow-up with PCP. Treatment diagnosis and follow-up were discussed with the patient. Differential Diagnosis Differential diagnosis: Likely abdominal pain, diverticulitis, gastroenteritis and small bowel obstruction Lab Data Attestation: I reviewed the patient's lab results. Labs: Lab Results 02/08/24 Range/Units 10:00 WBC 9.9 (4.0-11.0) 10^3/uL RBC 4.63 (4.20-5.40) 10^6/uL Hgb 14.8 (12.0-16.0) g/dL Hct 43.7 (36.0-48.0) % MCV 94.4 (81.0-99.0) fL MCH 32.0 (26.7-34.0) pg MCHC 33.9 (29.9-35.2) g/dL RDW 13.9 (11.0-15.0) % Plt Count 329 (150-450) 10^3/uL MPV 9.1 L (9.5-13.5) fL Neut % (Auto) 60.0 (43.0-75.0) % Lymph % (Auto) 28.7 (20.5-60.0) % [place] % (Auto) 7.6 (1.7-12.0) % Eos % (Auto) 2.9 (0.9-7.0) % Baso % (Auto) 0.4 (0.2-2.0) % Neut # (Auto) 6.0 (1.4-6.5) 10^3/uL Lymph # (Auto) 2.8 (1.2-3.8) 10^3/uL [place] # (Auto) 0.8 (0.3-0.8) 10^3/uL Eos # (Auto) 0.3 (0.0-0.7) 10^3/uL Baso # (Auto) 0.0 (0.0-0.1) 10^3/uL Abs Immat Gran (auto) 0.04 H (0.00-0.03) 10^3/uL Imm/Tot Granulo (auto) 0.4 (0.0-0.5) % Sodium 137 (136-145) mmol/L Potassium 3.6 (3.5-5.1) mmol/L Chloride 103 (98-107) mmol/L Carbon Dioxide 28.8 (21.0-32.0) mmol/L Anion Gap 8.8 BUN 13.0 (7.0-18.0) mg/dL Creatinine 0.80 (0.55-1.02) mg/dL Est GFR ( Amer) >60 (>=60) Est GFR (Non-Af Amer) >60 (>=60) BUN/Creatinine Ratio 16.2 Glucose 131 H (74-106) mg/dL Calcium 8.8 (8.5-10.1) mg/dL Total Bilirubin 0.5 (0.2-1.0) mg/dL Direct Bilirubin 0.1 (0.0-0.2) mg/dL AST 22 (15-37) U/L ALT 34 (14-59) U/L Alkaline Phosphatase 86 (46-116) U/L Total Protein 7.3 (6.4-8.2) g/dL Albumin 3.7 (3.4-5.0) g/dL Globulin 3.6 g/dL Albumin/Globulin Ratio 1.0 Amylase 77 (25-115) U/L Lipase 35.0 (16.0-77.0) U/L Imaging Data CT scan - abdomen: Radiologist's impression: ITS Impressions Abdomen/Pelvis CT 02/08/24 10:07 IMPRESSION: No acute abnormality Electronically authenticated by: MARCOS TROTTER Date: 02/08/2024 11:30 Discharge Plan Discharge Stand Alone Forms: Portal Instructions Chief Complaint: Abdominal Pain Clinical Impression: Abdominal pain Patient Disposition: Home, Self-Care Time of Disposition Decision: 11:55 Condition: Good Mode of Transportation: Private Vehicle Prescriptions / Home Meds: New dicyclomine 10 mg capsule 10 mg PO QID PRN (Reason: abdominal pain) Qty: 20 0RF No Action vancomycin 125 mg capsule 125 mg PO Q6H 10 Days Qty: 40 0RF ondansetron HCl 4 mg tablet 4 mg PO Q8H PRN (Reason: nausea and vomiting) 5 Days Qty: 10 0RF hyoscyamine sulfate [Levsin/SL] 0.125 mg tablet, sublingual 0.125 mg PO Q8H PRN (Reason: abdominal discomfort) Qty: 10 0RF Print Language: Citizen Of [place] Instructions: Abdominal Pain (ED) Referrals: JOE MUSA [Primary Care Provider] - 1 week
[2024-02-08 10:11] LABS: Basophils Percent Auto 0.4 % (0.2-2.0); Eosinophils Absolute Auto 0.3 10^3/uL (0.0-0.7); Eosinophils Percent Auto 2.9 % (0.9-7.0); Hematocrit 43.7 % (36.0-48.0); Hemoglobin 14.8 g/dL (12.0-16.0); Immature Granulocytes Abs Auto 0.04 10^3/uL (0.00-0.03); Immature Granulocytes Pct Auto 0.4 % (0.0-0.5); Lymphocytes Absolute Auto 2.8 10^3/uL (1.2-3.8); Lymphocytes Percent Auto 28.7 % (20.5-60.0); Mean Corpuscular HGB Conc 33.9 g/dL (29.9-35.2); Mean Corpuscular Volume 94.4 fL (81.0-99.0); Mean Platelet Volume 9.1 fL (9.5-13.5); Monocytes Absolute Auto 0.8 10^3/uL (0.3-0.8); Monocytes Percent Auto 7.6 % (1.7-12.0); Platelet Count 329 10^3/uL (150-450); Red Blood Count 4.63 10^6/uL (4.20-5.40); Red Cell Distribution Width 13.9 % (11.0-15.0); White Blood Count 9.9 10^3/uL (4.0-11.0)
[2024-02-08 10:38] LABS: Alanine Aminotransferase 34 U/L (14-59); Albumin Level 3.7 g/dL (3.4-5.0); Alkaline Phosphatase 86 U/L (46-116); Amylase 77 U/L (25-115); Anion Gap 8.8; Aspartate Amino Transferase 22 U/L (15-37); BUN Creatinine Ratio 16.2; Bilirubin Direct 0.1 mg/dL (0.0-0.2); Bilirubin Total 0.5 mg/dL (0.2-1.0); Calcium 8.8 mg/dL (8.5-10.1); Carbon Dioxide 28.8 mmol/L (21.0-32.0); Chloride 103 mmol/L (98-107); Estimated GFR (African America >60 (>=60); Estimated GFR (Non-African Ame >60 (>=60); Globulin 3.6 g/dL; Glucose 131 mg/dL (74-106); Potassium 3.6 mmol/L (3.5-5.1); Sodium 137 mmol/L (136-145); Total Protein 7.3 g/dL (6.4-8.2)
[2024-02-08 12:19] VITALS: BP 124/88; PULSE 75; O2SAT 96
== END 2024-02-08 12:28 | disposition home or self-care (01) ==
PROVIDERS: Emergency Provider Emergency Medicine; PCP Nurse Practitioner Family
DX: R10.9 Unspecified abdominal pain (principal); F17.200 Nicotine dependence, unspecified, uncomplicated
CPT/HCPCS: 36415; 74177; 80048; 80076; 82150; 83690; 85025; 99284; Q9967

== ENCOUNTER 2024-05-23 08:04 | Outpatient (OUT) | payer OTHER, SELFPAY ==
[2024-05-23 15:41] LABS: Basophils Percent Auto 0.3 % (0.2-2.0); Eosinophils Absolute Auto 0.2 10^3/uL (0.0-0.7); Eosinophils Percent Auto 1.7 % (0.9-7.0); Hematocrit 44.8 % (36.0-48.0); Hemoglobin 15.5 g/dL (12.0-16.0); Immature Granulocytes Abs Auto 0.04 10^3/uL (0.00-0.03); Immature Granulocytes Pct Auto 0.4 % (0.0-0.5); Lymphocytes Absolute Auto 3.4 10^3/uL (1.2-3.8); Lymphocytes Percent Auto 30.9 % (20.5-60.0); Mean Corpuscular HGB Conc 34.6 g/dL (29.9-35.2); Mean Corpuscular Hemoglobin 31.8 pg (26.7-34.0); Mean Platelet Volume 9.1 fL (9.5-13.5); Monocytes Absolute Auto 1.1 10^3/uL (0.3-0.8); Monocytes Percent Auto 9.8 % (1.7-12.0); Neutrophils Absolute Auto 6.2 10^3/uL (1.4-6.5); Neutrophils Percent Auto 56.9 % (43.0-75.0); Platelet Count 359 10^3/uL (150-450); Red Blood Count 4.87 10^6/uL (4.20-5.40); Red Cell Distribution Width 13.5 % (11.0-15.0); White Blood Count 10.9 10^3/uL (4.0-11.0)
[2024-05-23 16:27] LABS: Estimated Average Glucose 114 mg/dL; Glycohemoglobin A1C 5.6 % (4.5-6.2)
[2024-05-23 16:55] LABS: Alanine Aminotransferase 24 U/L (14-59); Albumin Globulin Ratio 0.9; Albumin Level 3.8 g/dL (3.4-5.0); Alkaline Phosphatase 95 U/L (46-116); Anion Gap 15.1; Aspartate Amino Transferase 13 U/L (15-37); BUN Creatinine Ratio 14.6; Bilirubin Total 0.5 mg/dL (0.2-1.0); Calcium 9.6 mg/dL (8.5-10.1); Carbon Dioxide 25.6 mmol/L (21.0-32.0); Chloride 105 mmol/L (98-107); Estimated GFR (African America >60 (>=60 mL/min/1.73m^2); Estimated GFR (Non-African Ame >60 (>=60 mL/min/1.73m^2); Free T3 2.71 pg/mL (2.18-3.98); Glucose 95 mg/dL (74-106); Potassium 3.7 mmol/L (3.5-5.1); Sodium 142 mmol/L (136-145); Thyroid Stimulating Hormone 0.765 uIU/mL (0.358-3.740); Total Protein 7.8 g/dL (6.4-8.2)
== END 2024-05-23 08:05 ==
LOC: LAB 06-05 08:04
PROVIDERS: PCP Nurse Practitioner Family; Visit Provider Nurse Practitioner Family
DX: Z00.00 Encounter for general adult medical examination without abnormal findings (principal)
CPT/HCPCS: 36415; 80053; 83036; 83525; 84436; 84443; 84481; 85025

== ENCOUNTER 2024-06-13 11:47 | Outpatient (OUT) | payer OTHER, SELFPAY ==
--- NOTE | 2024-06-13 11:56 | XR_ITS ---
The [address] [address] Patient Name: PHIL BALL MRN: [id number] date: 1980 Sex: F Assigned Patient Location: [facility] Current Patient Location: [facility] Accession/Order Number: [id number] Exam Date: 06/13/2024 12:05 Report Date: 06/13/2024 13:24 At the request of: JOE MUSA Procedure: XR chest 2V PROCEDURE: XR chest 2V DATE: 06/13/2024 12:05 PM EST COMPARISONS: 02/22/2021 CLINICAL INDICATION: 43 years Female Cough FINDINGS: The cardiomediastinal silhouette and pulmonary vasculature are within normal limits. The lungs are clear. There is no evidence of pleural effusion or pneumothorax. XR/XR chest 2V IMPRESSION: Chest radiograph is within normal limits. Electronically authenticated by: ARNOLDO BALDWIN Date: 06/13/2024 13:24
--- OUTSIDE RECORDS SUMMARY | 2024-06-13 12:00 | XMS_ITS | CCD ---
Author Organization [facility] Care Team Providers Care Induction Machine Operator Name Role Phone Joi Rivas Unavailable MARIELENA CALVILLO Primary Care Unavailable PAY, DR ESPINOSA Attending Unavailable PAY, DR ESPINOSA Consulting Unavailable PAY, DR ESPINOSA Admitting Unavailable JOHN HAQUE Consulting Unavailable CARLA JENNINGS Consulting Unavailable ALMA MUSA S Primary Care Physician LENCHO ALMA S Referring Unavailable Pedro Fuchs Attending Unavailnitza Musa APRN-MARIELENA, Alma S Primary Care Provider MADIE KATJA J Primary Care Unavailable QUEEN, MARCOS Attending Unavailable QUEEN, MARCOS Attending Unavailable QUEENMARCOS Referring Unavailable STERLINGHOLZ, KATJA J Primary Care Unavailable LENCHO, ALMA S Referring Unavailable TAWANAHHOLZ, KATJA J Primary Care Unavailable PEDRO FUCHS Referring Unavaila ble TAWANAHHOLZ, KATJA J Primary Care Unavailable LENCHO, ALMA S Primary Care Unavailable DIYA FRIAS Attending Unavailable ZACH CHILEL Attending Unavailable ADISDIYA Referring Unavailable LENCHO, ALMA S Primary Care Unavailable LENCHO, ALMA S Referring Unavailable LENCHO, ALMA S Primary Care Unavailable AGGIESZACH Attending Unavailable AGGIESZACH Referring Unavailable LENCHO, ALMA S Primary Care Unavailable Dimitri Reina Attending Unavailab Dimitri Chavis Admitting Unavailab le Madie, Katja J Primary Care Unavailable Unavailable Primary Care Provider Unavailabl e Allergies Allergy Classification Reported Allergen(s) Allergy Type Date of Onset Reaction(s) Facility (3 sources) Acetaminophen / oxyCODONE Drug Allergy extreme itching [facility] Other (5 sources) Cephalexin; Translations: [Keflex] Drug Allergy hives, Weal (disorder) [facility]ository (3 sources) gabapentin Drug Allergy Unknown [facility] Other (3 sources) Oxandrolone Drug [facility]ergy [facility] Other (3 sources) Sulfacetamide / Sulfur Drug Allergy [facility] Other (1 source) Ciprofloxacin Drug Allergy [facility] (1 source) Desonide Drug Allergy [facility] (1 source) gabapentin Drug Allergy [facility] (1 source) Naproxen Drug Allergy [facility] (3 sources) oxyCODONE; Translations: [OXYCODONE] Drug Allergy 03-20-20 17 [facility] (1 source) Sulfonamides (Antibiotic) Drug allergy (disorder) [facility] (1 source) Vancomycin Drug Allergy [facility] (4 sources) oxyCODONE; Translations: [oxycodone] Drug Allergy 03-20-20 17 Itching (finding), Itching [facility] (1 source) Sulfonamides (Antibiotic); Translations: [sulfa drugs] Propensity to adverse reactions to drug Weal (disorder) [facility] (5 sources) Adhesive agent; Translations: [ADHESIVE] Propensity to adverse reactions to drug 05-02-20 [facility] (5 sources) Cephalexin; Translations: [CEPHALEXIN] Drug Allergy 03-20-20 17 [facility] (5 sources) Ciprofloxacin; Translations: [CIPROFLOXACIN] Drug Allergy 05-02-20 [facility] (5 sources) Sulfonamides (Antibiotic); Translations: [SULFA (SULFONAMIDE ANTIBIOTICS)] Propensity to adverse reactions to drug 03-20-20 [facility] (5 sources) SUMAtriptan; Translations: [SUMATRIPTAN] Drug Allergy 05-02-20 [facility] (1 source) Acetaminophen Drug Allergy 05-03-20 [facility] (1 source) Cephalexin Drug Allergy 05-03-20 [facility] (1 source) gabapentin Drug Allergy 05-03-20 [facility] (1 source) Oxandrolone Drug Allergy 05-03-20 [facility] (1 source) oxyCODONE Drug Allergy 05-03-20 [facility] (1 source) Sulfacetamide Drug Allergy 05-03-20 [facility] (1 source) Sulfur Drug Allergy 05-03-20 [facility] Rep[facility] Medications Current Medications Medication Drug Class(es) Dates Sig (Normalized) Sig (Original) [id number] 200 actuat albuterol 0.09 mg/actuat metered dose inhaler (4 sources) beta2-Adrenergic Agonist Start: 04-05-2022 take 2 puff(s) by inhalation every four hours as needed Albuterol Sulfate HFA 108 (90 Base) MCG/ACT 2 puffs as needed Inhalation every 4 hrs Apr, Active take 1.25 mg by inha lation every six hours as needed for wheezing albuterol (ACCUNEB) 1.25 mg/3 mL nebuliz er solution Inhale 3 mL (1.25 mg total) by nebulization every 6 (six) hours as needed for wheezing. Active albuterol (ACCUN EB) 1.25 mg/3 mL nebulizer solution Inhale 1 ampule by nebulization every 6 (six) hours as needed for wheezing. Active aspirin 81 mg chewable tablet (3 sources) Platelet Aggregation Inhibitor, Nonsteroidal Anti-inflammatory Drug Start: 04-29-2024 aspirin 81 mg chewable tablet Chew 1 tablet (81 mg total) and swallow in the morning. 20 tablet 04/29/2024 Active clarithromycin 500 mg oral tablet (1 source) Macrolide Antimicrobial Start: 02-08-2022 take 1 tablet by mouth every twelve hours Clarithromycin 500 MG 1 tablet Orally every 12 hrs for 10 day(s) Jan, Active diclofenac sodium 75 mg delayed release oral tablet (3 sources) Nonsteroidal Anti-inflammatory Drug Start: 06-17-2020 take 1 tablet by mouth twice daily diclofenac (VOLTAREN) 75 mg EC tablet Take 1 tablet (75 mg total) by mouth 2 (two) times a day. 60 tablet 5 06/17/2020 Active doxycycline monohydrate 100 mg oral capsule (1 source) Tetracycline-class Drug Start: 04-05-2022 take 1 capsule by mouth every twelve hours Doxycycline Monohydrate 100 MG 1 capsule Orally every 12 hrs for 10 days Apr, Active fluticasone propionate 0.05 mg/actuat metered dose nasal spray (1 source) Corticosteroid Start: 04-05-2022 take 1 spray(s) nasal route once daily Fluticasone Propionate 50 MCG/ACT 1 spray in each nostril Nasally Once a day for 30 day(s) Apr, Active hyoscyamine sulfate 0.125 mg oral tablet (1 source) Start: 02-09-2024 hyoscyamine 0.125 mg oral Tab Refills(s) 0 Start Date: 02/09/24 Status: Ordered Ibgard 90 mg oral delayed release capsule (1 source) Start: 02-09-2024 take 2 capsules by mouth twice daily Ibgard 90 mg oral delayed release capsule 180 mg = 2 cap(s), Oral, BID, # 48 cap(s), Refills(s) 3, Pharmacy: [facility] [id number], 167, cm, 02/09/24 11:01:00 EDT, Height/Length Dosing, 92, kg, 02/09/24 11:01:00 EDT, Weight Dosing Start Date: 02/09/24 Status: Ordered ibuprofen 800 mg oral tablet (3 sources) Nonsteroidal Anti-inflammatory Drug Start: 12-03-2019 take 1 tablet by mouth every eight hours as needed for pain ibuprofen (ADVIL,MOTRIN) 800 mg tablet Take 1 tablet (800 mg total) by mouth every 8 (eight) hours as needed for pain. 90 tablet 5 12/03/2019 Active methylPREDNISolone 4 mg oral tablet (1 source) Corticosteroid Start: 04-05-2022 methylPREDNISolone 4 MG as directed Orally Once a day for 6 days Apr, Active metroNIDAZOLE 500 mg oral tablet (1 source) Nitroimidazole Antimicrobial Start: 02-09-2024 MetroNIDAZOLE 500 mg Tab Refills(s) 0 Start Date: 02/09/24 Status: Ordered NON FORMULARY (3 sources) NON FORMULARY Bi omed compound cream 1 to 2 grams tid to qid Active ofloxacin 3 mg/ml otic solution (1 source) Quinolone Antimicrobial Start: 02-08-2022 Ofloxacin 0.3 % 3-4 drop into affected ear in ear tid for 7 days Jan, Active potassium chloride 10 meq extended release oral tablet (1 source) Start: 05-07-2024 End: 05-09-2024 potassium chloride (K-TAB,KLOR-CON) 10 MEQ CR tablet Indications: Hypokalemia Take 2 tablets (20 mEq total) by mouth in the morning for 2 days. 2 tablet 05/07/2024 05/09/2024 Active Probiotic Digestive Aid Gummies (1 source) Start: 02-09-2024 Probiotic Digestive Aid Gummies Refill(s) 0 Start Date: 02/09/24 Status: Ordered promethazine hydrochloride 12.5 mg oral tablet (1 source) Phenothiazine Start: 05-03-2022 take 1 tablet by mouth every eight hours as needed Promethazine HCl 12.5 MG 1 tablet as needed Orally every 8 hrs for 4 days May, Active vancomycin 125 mg oral capsule (1 source) Glycopeptide Antibacterial Start: 02-09-2024 vancomycin 125 mg Cap Refills(s) 0 Start Date: 02/09/24 Status: Ordered Completed/Discontinued Medications Medication Drug Class(es) Dates Sig (Normalized) Sig (Original) Toradol 30 mg/ml (1 source) Start: 05-03-2022 Toradol 30 mg/ml May, 30 mg triamcinolone acetonide 40 mg/ml injectable suspension (1 source) Corticosteroid Start: 05-03-2022 Kenalog-40 May, 40 mg Problems Active Problems Problem Classification Problem Date Documented Date Episodic/Chronic Bacterial infection; unspecified site (2 sources) Clostridioides difficile infection; Translations: [Other bacterial infections of unspecified site] 02-29-2024 Episodic Chronic obstructive pulmonary disease and bronchiectasis (1 source) Bronchitis, not specified as acute or chronic Episodic Disorders of lipid metabolism (2 sources) Mixed hyperlipidemia; Translations: [Mixed hyperlipidemia] Onset: 05-07-2024 05-07-2024 Chronic E Codes: Struck by; against (1 source) Other cause of strike by thrown, projected or falling object, initial encounter; Translations: [OTH CAUSE STRIK THRWN/FALL OBJ INIT] Onset: 01-27-2022 Episodic Fluid and electrolyte disorders (2 sources) Hypokalemia; Translations: [Hypokalemia] Onset: 05-07-2024 05-07-2024 Episodic Headache; including migraine (2 sources) Migraine [...] exposure to other viral communicable diseases] Episodic Intestinal infection (3 sources) Salmonella gastroenteritis; Translations: [Salmonella enteritis] Onset: 02-09-2024 Episodic Joint disorders and dislocations; trauma-related (3 sources) Derangement of left knee; Translations: [Unspecified internal derangement of left knee] Chronic Nonspecific chest pain (3 sources) Chest pain; Translations: [Chest pain, unspecified] Onset: 04-29-2024 05-07-2024 Episodic Other aftercare (1 source) Other lobsterman (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; Translations: [OTH 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 SUPERVISOR CURRENT DRUG THERAPY] Onset: 01-27-2022 Episodic Other eye disorders (1 source) Xanthoma of right eyelid; Translations: [Xanthelasma of right upper eyelid] 05-07-2024 Episodic Other eye disorders (1 source) Xanthelasma of right upper eyelid; Translations: [Xanthelasma of right upper eyelid] Onset: 05-07-2024 Episodic Other eye disorders (1 source) Xanthelasma of right lower eyelid; Translations: [Xanthelasma of right lower eyelid] Onset: 05-07-2024 Episodic Other injuries and conditions due to external causes (1 source) Other specified injuries of head, initial encounter; Translations: [OTH SPEC INJURIES HEAD INITIAL ENC] Onset: 01-27-2022 Episodic Other lower respiratory disease (2 sources) Pleuritic pain; Translations: [Pleurodynia] 05-07-2024 Episodic Other lower respiratory disease (2 sources) Pleurodynia; Translations: [Pleurodynia] Onset: 05-07-2024 Episodic Other nervous system disorders (3 sources) Chronic pain; Translations: [Other chronic pain] Chronic Other upper respiratory infections (1 source) Acute ethmoidal sinusitis, unspecified Episodic Spondylosis; intervertebral disc disorders; other back problems (6 sources) Degeneration of cervical intervertebral disc; Translations: [Other cervical disc degeneration, unspecified cervical region] Onset: 07-17-2019 11-19-2019 Chronic Substance-related disorders (1 source) Nicotine dependence, cigarettes, uncomplicated; Translations: [NICOTINE DEPEND CIGARETTES UNCOMP] Onset: 01-27-2022 Chronic Unclassified (1 source) New Patient Onset: 05-07-2024 Unclassified (1 source) Generalized Body Aches Onset: 12-27-2023 Unclassified (1 source) Body Aches, Nausea Onset: 12-27-2023 Past or Other Problems Problem Classification Problem Date Documented Da te Episodic/Chronic Other gastrointestinal disorders (1 source) Diarrhea, unspecified; Translations: [Diarrhea, unspecified] Onset: 01-18-2024 Episodic Otitis media and related conditions (1 source) Otitis media, unspecified, bilateral Onset: 02-08-2022 Resolved: 02-08-2022 Episodic Residual codes; unclassified (1 source) Chills (without fever); Translations: [Chills (without fever)] Onset: 12-27-2023 Episodic Spondylosis; intervertebral disc disorders; other back problems (7 sources) Cervicalgia; Translations: [Disorder of sacrum] Onset: 05-21-2019 02-11-2020 Episodic Results Test Name Value Interpretation Reference Range Facility CRP [Mass/Vol]on 05-16-2024 C REACTIVE PROTEIN 1.1 mg/dL High 0.000-0.744 [facility] Comment on above: Performed By: #### T HYR, CBCA, CMP, 92383-4, 36218-2 #### [facility] ([id number]) [address] [place] [address] 42396 ESR Photometric method (Bld) [Velocity]on 05-16-2024 ESR, ERYTHROCYTE SEDIMENTATION RATE 9 mm/h Normal 0-20 [facility] Comment on above: Performed By: #### T HYR, CBCA, CMP, 19649-6, 53182-6 #### [facility] ([id number]) [address] [place] [address] Lipid 1996 panelon 4 Cholesterol [Mass/Vol] 248 mg/dL High 150-200 [facility] Comment on above: Performed By: ###Yelitza KEENE, CBCA, CMP, , 04102-6 #### [facility] ([id number]) [address] [place] [address] 28768 Cholesterol in HDL [Mass/Vol] 32 mg/dL Low >39 [facility] Comment on above: Result Comment: HDL <40 mg/dL - High Risk HDL > or = 40mg/dL- Desirable HDL >60 mg/dL - Negative Risk Performed By: ###Yelitza KEENE, CBCA, CMP, , 36821-9 #### [facility] ([id number]) [address] [place] [address] 28472 Cholesterol in LDL [Mass/Vol] 173 mg/dL High <130 [facility] Comment on above: Result Comment: LDL <100 mg/dL - Desirable LDL >160 mg/dL - High Risk Performed By: ###Yelitza KEENE, CBCA, CMP, , 68617-4 #### [facility] ([id number]) [address] [place] [address] 89954 Cholesterol in VLDL [Mass/Vol] 43 mg/dL High 0-30 [facility] Comment on above: Performed By: ###Yelitza STRINGERR, CBCA, CMP, , 20036-4 #### [facility] ([id number]) [address] [place] [address] 51116 CHOLESTEROL:HDL 7.8 High 1.0-5.0 [facility] Comment on above: Performed By: #### T HYR, CBCA, CMP, , 52148-8 #### [facility] ([id number]) [address] [place] [address] 02809 Triglyceride [Mass/Vol] 215 mg/dL High 27-150 [facility] Comment on above: Performed By: #### T HYR, CBCA, CMP, , 58234-2 #### [facility] ([id number]) [address] [place] [address] 66525 CBC AND AUTO DIFFon 04-29- 24 ABSOLUTE BASOPHIL 0.1 X10E9/L Normal 0.0-0.2 [facility] Comment on above: Performed By: #### T HYR, CBCA, CMP, , 59363-6 #### [facility] ([id number]) [address] [place] [address] 27598 ABSOLUTE NEUTROPHIL 9.2 X10E9/L High 1.5-6.6 [facility] Comment on above: Performed By: #### T HYR, CBCA, CMP, , 66790-1 #### [facility] ([id number]) [address] [place] [address] 63698 Basophils/100 WBC (Bld) 0.6 % Normal [facility] Comment on above: Performed By: #### T HYR, CBCA, CMP, , 72794-2 #### [facility] ([id number]) [address] [place] [address] 92846 Eosinophils (Bld) [#/Vol] 0.2 10*3/uL Normal 0.0-0.4 [facility] Comment on above: Performed By: #### T HYR, CBCA, CMP, , 64661-8 #### [facility] ([id number]) [address] [place] [address] 19501 Eosinophils/100 WBC (Bld) 1.5 % Normal [facility] Comment on above: Performed By: #### T HYR, CBCA, CMP, , 32968-2 #### [facility] ([id number]) [address] [place] [address] 13064 Erythrocyte distribution width (RBC) [Ratio] 14.8 % Normal 11.5-15.0 [facility] Comment on above: Performed By: #### T HYR, CBCA, CMP, , 16431-3 #### [facility] ([id number]) [address] [place] [address] 69117 Hematocrit (Bld) [Volume fraction] 44.8 % Normal 35-47 [facility] Comment on above: Performed By: #### T HYR, CBCA, CMP, , 31856-1 #### [facility] ([id number]) [address] [place] [address] 44534 Hemoglobin (Bld) [Mass/Vol] 15.3 g/dL Normal 11.7-15.5 [facility] Comment on above: Performed By: #### T HYR, CBCA, CMP, , 64958-0 #### [facility] ([id number]) [address] [place] [address] 78517 Lymphocytes (Bld) [#/Vol] 2.8 10*3/uL Normal 1.0-3.5 [facility] Comment on above: Performed By: #### T HYR, CBCA, CMP, , 26897-4 #### [facility] ([id number]) [address] [place] [address] 39293 Lymphocytes/100 WBC (Bld) 21.2 % Normal [facility] Comment on above: Performed By: #### T HYR, CBCA, CMP, , 89835-6 #### [facility] ([id number]) [address] [place] [address] 16276 MCH (RBC) [Entitic mass] 31.7 pg Normal 27-34 [facility] Comment on above: Performed By: #### T HYR, CBCA, CMP, , 28172-8 #### [facility] ([id number]) [address] [place] [address] 71098 MCHC (RBC) [Mass/Vol] 34.1 g/dL Normal 32-36 [facility] Comment on above: Performed By: #### T HYR, CBCA, CMP, , 60541-5 #### [facility] ([id number]) [address] [place] [address] 06690 MCV (RBC) [Entitic vol] 93 fL Normal 80-100 [facility] Comment on above: Performed By: #### T HYR, CBCA, CMP, , 91175-0 #### [facility] ([id number]) [address] [place] [address] 45676 Monocytes (Bld) [#/Vol] 0.8 10*3/uL Normal 0-0.9 [facility] Comment on above: Performed By: #### T HYR, CBCA, CMP, , 18992-8 #### [facility] ([id number]) [address] [place] [address] 57918 Monocytes/100 WBC (Bld) 6.3 % Normal [facility] Comment on above: Performed By: #### T HYR, CBCA, CMP, , 46681-1 #### [facility] ([id number]) [address] [place] [address] 82971 Neutrophils/100 WBC (Bld) 70.4 % Normal [facility] Comment on above: Performed By: #### T HYR, CBCA, CMP, , 59720-5 #### [facility] ([id number]) [address] [place] [address] 73162 Platelet mean volume (Bld) [Entitic vol] 7.8 fL Normal 7-12 [facility] Comment on above: Performed By: #### T HYR, CBCA, CMP, , 35159-0 #### [facility] ([id number]) [address] [place] [address] 22056 Platelets (Bld) [#/Vol] 340 10*3/uL Normal 150-450 [facility] Comment on above: Performed By: #### T HYR, CBCA, CMP, , 65089-0 #### [facility] ([id number]) [address] [place] [address] 98791 RBC COUNT 4.83 X10E12/L Normal 3.80-5.20 [facility] Comment on above: Performed By: #### T HYR, CBCA, CMP, , 67026-5 #### [facility] ([id number]) [address] [place] [address] 84149 WBC (Bld) [#/Vol] 13.1 10*3/uL High 4.0-11.0 [facility] Comment on above: Performed By: #### T HYR, CBCA, CMP, , 08435-4 #### [facility] ([id number]) [address] [place] [address] 99583 COMPREHENSIVE METABOLIC PANE Atif 04-29-2024 Albumin [Mass/Vol] 4.1 g/dL Normal 3.2-5.3 [facility] Comment on above: Performed By: #### T HYR, CBCA, CMP, , 20094-9 #### [facility] ([id number]) [address] [place] [address] 11723 ALP [Catalytic activity/Vol] 87 U/L Normal 39-130 [facility] Comment on above: Performed By: #### T HYR, CBCA, CMP, 56801-1, 22592-3 #### [facility] ([id number]) [address] [place] [address] 79917 ALT [Catalytic activity/Vol] 19 U/L Normal 0-31 [facility] Comment on above: Performed By: #### T HYR, CBCA, CMP, , 33238-8 #### [facility] ([id number]) [address] [place] [address] 30161 Anion gap [Moles/Vol] 10 mmol/L Normal 5-15 [facility] Comment on above: Performed By: #### T HYR, CBCA, CMP, , 58622-3 #### [facility] ([id number]) [address] [place] [address] 07236 AST [Catalytic activity/Vol] 19 U/L Normal 0-41 [facility] Comment on above: Performed By: #### T HYR, CBCA, CMP, , 11196-8 #### [facility] ([id number]) [address] [place] [address] 63991 Bilirubin [Mass/Vol] 0.8 mg/dL Normal 0.3-1.2 [facility] Comment on above: Performed By: #### T HYR, CBCA, CMP, , 34165-1 #### [facility] ([id number]) [address] [place] [address] 52833 Calcium [Mass/Vol] 9.1 mg/dL Normal 8.5-10.5 [facility] Comment on above: Performed By: #### T HYR, CBCA, CMP, , 95561-1 #### [facility] ([id number]) [address] [place] [address] 07412 Chloride [Moles/Vol] 106 mmol/L Normal 98-109 [facility] Comment on above: Performed By: #### T HYR, CBCA, CMP, , 02506-7 #### [facility] ([id number]) [address] [place] [address] 94801 CO2 [Moles/Vol] 23 mmol/L Normal 22-32 [facility] Comment on above: Performed By: #### T HYR, CBCA, CMP, , 27909-6 #### [facility] ([id number]) [address] [place] [address] 44826 Creatinine [Mass/Vol] 0.66 mg/dL Normal 0.40-1.00 [facility] Comment on above: Result Comment: METH OD TRACEABLE TO IDMS STANDARD Performed By: #### T HYR, CBCA, CMP, , 46592-5 #### [facility] ([id number]) [address] [place] [address] 57366 eGFR (CKD-EPI) NON-RACE DEPENDENT >90 Normal >59 [facility] Comment on above: Result Comment: Reported eGFR is based on the CKD-EPI 2020 equation that does not use a race coefficient. Performed By: #### T HYR, CBCA, CMP, , 51561-9 #### [facility] ([id number]) [address] [place] [address] 33504 Glucose [Mass/Vol] 133 mg/dL High 65-99 [facility] Comment on above: Performed By: #### T HYR, CBCA, CMP, , 27909-2 #### [facility] ([id number]) [address] [place] [address] 18530 Potassium [Moles/Vol] 3.4 mmol/L Low 3.5-5.0 [facility] Comment on above: Performed By: #### T HYR, CBCA, CMP, , 03974-2 #### [facility] ([id number]) [address] [place] [address] 14939 Protein [Mass/Vol] 7.4 g/dL Normal 6.0-8.0 [facility] Comment on above: Performed By: #### T HYR, CBCA, CMP, , 78115-8 #### [facility] ([id number]) [address] [place] [address] 60613 Sodium [Moles/Vol] 139 mmol/L Normal 134-146 [facility] Comment on above: Performed By: #### T HYR, CBCA, CMP, , 95622-5 #### [facility] ([id number]) [address] [place] [address] 04805 Urea nitrogen [Mass/Vol] 12 mg/dL Normal 5-23 [facility] Comment on above: Performed By: #### T HYR, CBCA, CMP, , 24859-0 #### [facility] ([id number]) [address] [place] [address] 81556 Fibrin D-dimer DDU (PPP) [Ma ss/Vol]on 04-29-2024 D DIMER <150 Normal <255 [facility] Comment on above: Result Comment: Results <255 ng/mL DDU: The presence of a VTE can safely be excluded with a negative D-Dimer result and Wells score. A negative result doesn't exclude the possibility of DIC. The test be repeated along with other diagnostic tests if the patient's symptoms persist or worsen. [email or web address] Performed By: #### T HYR, CBCA, CMP, , 54000-4 #### [facility] ([id number]) [address] [place] [address] 93120 MAGNESIUMon 04-29-2024 Magnesium [Mass/Vol] 2.1 mg/dL Normal 1.8-2.6 [facility] Comment on above: Performed By: #### T HYR, CBCA, CMP, , 73388-6 #### [facility] ([id number]) [address] [place] [address] 52421 THYROID PROFILEon 04-29-2024 Free T4 [Mass/Vol] 0.76 ng/dL Normal 0.61-1.60 [facility] Comment on above: Performed By: #### T HYR, CBCA, CMP, , 68203-4 #### [facility] ([id number]) [address] [place] [address] 11753 TSH 0.86 uIU/mL Normal 0.49-4.67 [facility] Comment on above: Performed By: #### T HYR, CBCA, CMP, , 57354-6 #### [facility] ([id number]) [address] [place] [address] 67204 Troponin I.cardiac High sens itivity method [Mass/Vol]on 04-29-2024 1 HOUR TROP I, HIGH SENSITIVITY <2 Normal <16 [facility] Comment on above: Performed By: #### T HYR, CBCA, CMP, , 48806-5 #### [facility] ([id number]) [address] [place] [address] 29206 TROPONIN I, HIGH SENSITIVITY <2 Normal <16 [facility] Comment on above: Performed By: #### T HYR, CBCA, CMP, , 35300-3 #### [facility] ([id number]) [address] [place] [address] 35561 XR CHEST 1 VWon 04-29-2024 XR CHEST 1 VW XR CHEST 1 VW Clinical history: Midsternal chest pain Views: 1 Comparison: 12/27/2023 Findings/Impression: 1. No acute infiltrate. No volume loss nor consolidation. There is no pleural effusion, pneumothorax, nor volume loss. Heart and mediastinal structures are unremarkable. Pulmonary vasculature stable. 2. No significant change Finalized by Chung Grayson MD on 04/29/2024 2:35 PM Normal [facility] C DIFFICILE BY PCRon 024 C. difficile toxin genes DYLAN+probe Ql (Stl) TOXIGENIC C DIFF Negative (qualifier value) 027 NAP1 Negative (qualifier value) Normal PRNEG [facility] Comment on above: Performed By: #### T HYR, CBCA, CMP, 68429-0, 25658-3 #### [facility] ([id number]) [address] [place] [address], [place] [address] Ambulatory Visit Summaryon 0 02-09-2024 Ambulatory Visit Summary Ambulatory Visit Summary TEMITOPE BECKETT :1980 Visit Date:02/09/2024 Ambulatory Visit Instructions Your Diagnosis Gastroenteritis, Salmonella Colitis, Clostridium difficile Your Care Team Attending Physician - Pedro Fuchs MD Primary Care Physician - ALMA MUSA CNP Referring Physician - ALMA MUSA CNP This Is Your Medications List peppermint oil (Ibgard 90 mg oral delayed release capsule) Contact prescribing physician if questions or concerns bacillus coagulans (Probiotic Digestive Aid Gummies) hyoscyamine (hyoscyamine 0.125 mg oral Tab) metronidazole (MetroNIDAZOLE 500 mg Tab) vancomycin (vancomycin 125 mg Cap) Procedures Performed History of ankle surgery. Discharge Vitals Heart Rate (Peripheral) 70 Respiratory Rate 18 Blood Pressure 120/78 Height 167 cm Height 66 in Weight 92 kg Weight 202.4 lb BMI 32.99 Medications What How Much When Instructions New peppermint oil (Ibgard 90 mg oral delayed release capsule) 2 Capsules By Mouth 2 times a day [facility]: [phone] Unchanged bacillus coagulans (Probiotic Digestive Aid Gummies) Contact prescribing physician if questions or concerns Unchanged hyoscyamine (hyoscyamine 0.125 mg oral Tab) Contact prescribing physician if questions or concerns Unchanged metronidazole (MetroNIDAZOLE 500 mg Tab) Contact prescribing physician if questions or concerns Unchanged vancomycin (vancomycin 125 mg Cap) Contact prescribing physician if questions or concerns Pharmacy Information [facility] [id number]: [address] [place], [place] [id number] [phone] Allergies Keflex (Hives) oxyCODONE (Itching) sulfa drugs (Hives) Patient Survey You may receive a survey via text or e-mail asking about your office visit. Please share your experience with us by completing your survey. We appreciate your feedback and thank you for choosing us for your care. Normal [facility] Gastroenterology Office/Clin ic Noteon 02-09-2024 Gastroenterology Office/Clinic Note Gastroenterology Office/Clinic Note Chief Complaint IBS & c diff HPI Staff This is a 43 year old female who presents today for a referral by [facility] for complaints of IBS and salmonella. Denies Blood Thinners Denies GLP-1 Agonists Denies any family history of colon cancer/polyps. Denies any previous EGD/Colonoscopy Taking Vancomycin for C diff. 1st time she's had it. This is her 4th round of Vanco. RUQ pain started in upper abdomen and radiates to RLQ and pelvis. Normally constipation but is having 5-6 BM's a day now. Patient was seen at [facility] 02/08/24 for c/o right sided abdominal pain and C. diff that has been being treated for the last 2 months w/ vancomycin Stool cult Report 01/22/24 Results for Preliminary: Culture POSITIVE for Salmonella species Culture negative for Shigella species Culture negative for Escherichia coli serotype O157 Culture negative for Vibrio, Aeromonas, and Plesiomonas species. Culture negative for Campylobacter species Enrichment broth not available. Recovery of Shigella may be impaired. CT abd/pel w/ contrast 02/08/24 IMPRESSION: No acute abnormality CT abd/pelv wo con 12/28/23 IMPRESSION: Ascending colon inflammatory changes, consider inflammatory or infectious colitis LABS 02/08/24 Liver panel- normal BMP- normal GI pathogen panel PCR 12/28/23 Campylobacter NOT DETECTED Clostridium Diff Toxin A/B DETECTED Plesiomonas shigelloides NOT DETECTED Salmonella DETECTED Vibrio NOT DETECTED Vibrio cholerae NOT DETECTED Yersinia enterocolitica NOT DETECTED Enteroaggregative E.coli NOT DETECTED Enterotoxigenic E. coli NOT DETECTED Enteropathogenic E.coli NOT DETECTED Shiga-like toxin-producing E.C NOT DETECTED Shigella/Enteroinvas honey E.coli NOT DETECTED Cryptosporidium NOT DETECTED Cyclospora cayetanensis NOT DETECTED Entamoeba histolytica NOT DETECTED Giardia lamblia NOT DETECTED Adenovirus F 40/41 NOT DETECTED Astrovirus NOT DETECTED Norovirus GI/GI NOT DETECTED Sapovirus NOT DETECTED OCCULT BLOOD POSITIVE History of Present Illness since December, she started to have abd pain (more than usual) severe cramping tried bentyl and hycamine, no help BM 2-7, soft, small amounts mild urgency no more blood had fever in December, hospitalized improved was started on IV Abx and Vanco po Review of Systems PHQ Score Initial Depression Screen Score: 0 SCORE Physical Exam Vitals & Measurements HR: 70(Peripheral) RR: 18 BP: 120/78 HT: 66 in HT: 167 cm WT: 92 kg WT: 202.4 lb BMI: 32.99 Assessment/Plan 1. Gastroenteritis, Salmonella (A02.0: Salmonella enteritis) Had a fever in December with cramping and diarrhea and some blood in her stool She went to outside ER was admitted, was given IV antibiotics and vancomycin for Salmonella gastroenteritis and C. difficile colitis Not sure what antibiotics she got there but one of the antibiotic she got for the Salmonella was a Z-Demetrius This could prolong Salmonella shedding in the stool and that is why she had persistent Salmonella in stool again in December? Bentyl and Levsin were not helpful for cramping which is the main concern along with frequent bowel movements, no current blood or fever I would start with IBgard to help with cramping, no urgent need for colonoscopy, but will consider in the future we also discussed infectious disease referral, she prefers not to wait long, therefore I will refer her to Dr. Landon in [place] We also discussed possible foods that could lead to Salmonella infection, no certain food that she can remember that could have Salmonella contamination, but she reported she was eating in a restaurant that could be the source 2. Colitis, Clostridium difficile (A04.72: Enterocolitis due to Clostridium difficile, not specified as recurrent) First episode, Was given empirically for courses of vancomycin orally because she had persistent diarrhea I prefer to finish this course of vancomycin and then check C. difficile in the stool if diarrhea persist, follow-up with ID Orders: peppermint oil, 180 mg = 2 cap(s), Oral, BID, # 48 cap(s), Refills(s) 3, Pharmacy: [facility] [id number], 167, cm, 02/09/24 11:01:00 EDT, Height/Length Dosing, 92, kg, 02/09/24 11:01:00 EDT, Weight Dosing Follow-up No qualifying data available Problem List/Past Medical History Ongoing No qualifying data Historical No qualifying data Procedure/Surgical History History of ankle surgery. Medications hyoscyamine 0.125 mg oral Tab MetroNIDAZOLE 500 mg Tab Probiotic Digestive Aid Gummies vancomycin 125 mg Cap Allergies Keflex (Hives) oxyCODONE (Itching) sulfa drugs (Hives) Social History Tobacco 4 or less cigarettes(less than 1/4 pack)/day in last 30 days Tobacco Use:. Never Smokeless Tobacco Use:., 02/09/2024 Family History Diabetes mellitus: Father. Heart attack: Mother and Father. Stroke: Mother. Normal [facility] Comment on above: Result Comment: Elec tronically Signed By: Evan OLIVARES, Pedro Luu\.br\Date and Time Signed: 02/09/24 11:48 EDT Bacteria identified Cx Nom ( Stl)on 01-18-2024 STOOL CULT FINAL REPORT SEE NOTE Abnormal [facility] Comment on above: Result Comment: NOTE Results for Final Report: Culture POSITIVE for Salmonella species Culture negative for Shigella species Culture negative for Escherichia coli serotype O157 Culture negative for Vibrio, Aeromonas, and Plesiomonas species. Culture negative for Campylobacter species Enrichment broth not available. Recovery of Shigella may be impaired. Identification based on MALDI-TOF and phenotypic methods. This test was developed and its performance characteristics determined by [facility]. It has not been cleared or approved by the U.S. Food and Drug Administration. This test was performed in a CLIA-certified laboratory and is intended for clinical purposes. Performed By: [facility] [address] [place] [address] 30147 Sound Technician Supervisor: Fransisco Encarnacion MD, PhD CLIA Number: [id number] Performed By: #### T HYR, CBCA, CMP, 63908-3 #### [facility] ([id number]) [address] [place] [address] 64870 STOOL CULT PRELIM REPORT SEE NOTE Abnormal [facility] Comment on above: Result Comment: NOTE Results [...] developed and its performance characteristics determined by [facility]. It has not been cleared or approved by the U.S. Food and Drug Administration. This test was performed in a CLIA-certified laboratory and is intended for clinical purposes. Performed By: [facility] [address] [place] [address] 90384 Sound Technician Supervisor: Fransisco Encarnacion MD, PhD CLIA Number: [id number] Performed By: #### T HYR, CBCA, CMP, , 75857-0 #### [facility] ([id number]) [address] [place] [address] 29839 C DIFFICILE BY PCRon 024 C. difficile toxin genes DYLAN+probe Ql (Stl) TOXIGENIC C DIFF Positive (qualifier value) 027 NAP1 Negative (qualifier value) Normal PRNEG [facility] Comment on above: Performed By: #### T HYR, CBCA, CMP, , 62440-4 #### [facility] ([id number]) [address] [place] [address] 33977 CBC AND AUTO DIFFon 12-27-19 24 ABSOLUTE BASOPHIL 0.0 X10E9/L Normal 0.0-0.2 [facility] Comment on above: Performed By: #### T HYR, CBCA, CMP, , 93421-1 #### [facility] ([id number]) [address] [place] [address] 55289 ABSOLUTE NEUTROPHIL 8.7 X10E9/L High 1.5-6.6 [facility] Comment on above: Performed By: #### T HYR, CBCA, CMP, , 82294-6 #### [facility] ([id number]) [address] [place] [address] 59296 Basophils/100 WBC (Bld) 0.4 % Normal [facility] Comment on above: Performed By: #### T HYR, CBCA, CMP, , 05979-8 #### [facility] ([id number]) [address] [place] [address] 51495 Eosinophils (Bld) [#/Vol] 0.1 10*3/uL Normal 0.0-0.4 [facility] Comment on above: Performed By: #### T HYR, CBCA, CMP, , 61501-6 #### [facility] ([id number]) [address] [place] [address] 26417 Eosinophils/100 WBC (Bld) 0.8 % Normal [facility] Comment on above: Performed By: #### T HYR, CBCA, CMP, , 48359-2 #### [facility] ([id number]) [address] [place] [address] 49483 Erythrocyte distribution width (RBC) [Ratio] 14.5 % Normal 11.5-15.0 [facility] Comment on above: Performed By: #### T HYR, CBCA, CMP, , 56194-9 #### [facility] ([id number]) [address] [place] [address] 84088 Hematocrit (Bld) [Volume fraction] 40.7 % Normal 35-47 [facility] Comment on above: Performed By: #### T HYR, CBCA, CMP, , 72388-2 #### [facility] ([id number]) [address] [place] [address] 76353 Hemoglobin (Bld) [Mass/Vol] 14.4 g/dL Normal 11.7-15.5 [facility] Comment on above: Performed By: #### T HYR, CBCA, CMP, , 54170-3 #### [facility] ([id number]) [address] [place] [address] 67074 Lymphocytes (Bld) [#/Vol] 2.0 10*3/uL Normal 1.0-3.5 [facility] Comment on above: Performed By: #### T HYR, CBCA, CMP, , 96324-8 #### [facility] ([id number]) [address] [place] [address] 09133 Lymphocytes/100 WBC (Bld) 16.4 % Normal [facility] Comment on above: Performed By: #### T HYR, CBCA, CMP, , 72518-4 #### [facility] ([id number]) [address] [place] [address] 19825 MCH (RBC) [Entitic mass] 31.9 pg Normal 27-34 [facility] Comment on above: Performed By: #### T HYR, CBCA, CMP, , #### [facility] ([id number]) [address] [place] [address] 14724 MCHC (RBC) [Mass/Vol] 35.2 g/dL Normal 32-36 [facility] Comment on above: Performed By: #### T HYR, CBCA, CMP, , 85522-5 #### [facility] ([id number]) [address] [place] [address] 27973 MCV (RBC) [Entitic vol] 91 fL Normal 80-100 [facility] Comment on above: Performed By: #### T HYR, CBCA, CMP, , 95217-9 #### [facility] ([id number]) [address] [place] [address] 85349 Monocytes (Bld) [#/Vol] 1.4 10*3/uL High 0-0.9 [facility] Comment on above: Performed By: #### T HYR, CBCA, CMP, , 83517-6 #### [facility] ([id number]) [address] [place] [address] 84357 Monocytes/100 WBC (Bld) 11.4 % Normal [facility] Comment on above: Performed By: #### T HYR, CBCA, CMP, , 50603-7 #### [facility] ([id number]) [address] [place] [address] 27050 Neutrophils/100 WBC (Bld) 71.0 % Normal [facility] Comment on above: Performed By: #### T HYR, CBCA, CMP, , 45813-8 #### [facility] ([id number]) [address] [place] [address] 22436 Platelet mean volume (Bld) [Entitic vol] 7.4 fL Normal 7-12 [facility] Comment on above: Performed By: #### T HYR, CBCA, CMP, , 17676-2 #### [facility] ([id number]) [address] [place] [address] 38198 Platelets (Bld) [#/Vol] 280 10*3/uL Normal 150-450 [facility] Comment on above: Performed By: #### T HYR, CBCA, CMP, , 68007-5 #### [facility] ([id number]) [address] [place] [address] 89732 RBC COUNT 4.49 X10E12/L Normal 3.80-5.20 [facility] Comment on above: Performed By: #### T HYR, CBCA, CMP, 91312-8, 75338-3 #### [facility] ([id number]) [address] [place] [address] 97980 WBC (Bld) [#/Vol] 12.3 10*3/uL High 4.0-11.0 [facility] Comment on above: Performed By: #### T HYR, CBCA, CMP, , 12521-8 #### [facility] ([id number]) [address] [place] [address] 71511 COMPREHENSIVE METABOLIC PANE Atif 12-27-2023 Albumin [Mass/Vol] 4.0 g/dL Normal 3.2-5.3 [facility] Comment on above: Performed By: #### T HYR, CBCA, CMP, , 82370-7 #### [facility] ([id number]) [address] [place] [address] 56893 ALP [Catalytic activity/Vol] 80 U/L Normal 39-130 [facility] Comment on above: Performed By: #### T HYR, CBCA, CMP, , 85599-2 #### [facility] ([id number]) [address] [place] [address] 76133 ALT [Catalytic activity/Vol] 23 U/L Normal 0-31 [facility] Comment on above: Performed By: #### T HYR, CBCA, CMP, 38734-7, 60934-3 #### [facility] ([id number]) [address] [place] [address] 98566 Anion gap [Moles/Vol] 9 mmol/L Normal 5-15 [facility] Comment on above: Performed By: #### T HYR, CBCA, CMP, 35590-6, 28718-4 #### [facility] ([id number]) [address] [place] [address] 17622 AST [Catalytic activity/Vol] 20 U/L Normal 0-41 [facility] Comment on above: Performed By: #### T HYR, CBCA, CMP, , 51282-4 #### [facility] ([id number]) [address] [place] [address] 47862 Bilirubin [Mass/Vol] 0.4 mg/dL Normal 0.3-1.2 [facility] Comment on above: Performed By: #### T HYR, CBCA, CMP, , 18304-5 #### [facility] ([id number]) [address] [place] [address] 36286 Calcium [Mass/Vol] 8.6 mg/dL Normal 8.5-10.5 [facility] Comment on above: Performed By: #### T HYR, CBCA, CMP, , 62548-9 #### [facility] ([id number]) [address] [place] [address] 91175 Chloride [Moles/Vol] 106 mmol/L Normal 98-109 [facility] Comment on above: Performed By: #### T HYR, CBCA, CMP, , 50971-5 #### [facility] ([id number]) [address] [place] [address] 56249 CO2 [Moles/Vol] 21 mmol/L Low 22-32 [facility] Comment on above: Performed By: #### T HYR, CBCA, CMP, , 00247-9 #### [facility] ([id number]) [address] [place] [address] 79266 Creatinine [Mass/Vol] 0.79 mg/dL Normal 0.40-1.00 [facility] Comment on above: Result Comment: METH OD TRACEABLE TO IDMS STANDARD Performed By: #### T HYR, CBCA, CMP, , 08522-6 #### [facility] ([id number]) [address] [place] [address] 47220 eGFR (CKD-EPI) NON-RACE DEPENDENT >90 Normal >59 [facility] Comment on above: Result Comment: Reported eGFR is based on the CKD-EPI 1 equation that does not use a race coefficient. Performed By: #### T HYR, CBCA, CMP, , 88750-1 #### [facility] ([id number]) [address] [place] [address] 11274 Glucose [Mass/Vol] 108 mg/dL High 65-99 [facility] Comment on above: Performed By: #### T HYR, CBCA, CMP, , 93179-0 #### [facility] ([id number]) [address] [place] [address] 56650 Potassium [Moles/Vol] 3.8 mmol/L Normal 3.5-5.0 [facility] Comment on above: Performed By: #### T HYR, CBCA, CMP, , 08941-2 #### [facility] ([id number]) [address] [place] [address] 86624 Protein [Mass/Vol] 7.4 g/dL Normal 6.0-8.0 [facility] Comment on above: Performed By: #### T HYR, CBCA, CMP, , 47665-8 #### [facility] ([id number]) [address] [place] [address] 86470 Sodium [Moles/Vol] 136 mmol/L Normal 134-146 [facility] Comment on above: Performed By: #### T HYR, CBCA, CMP, , 81866-9 #### [facility] ([id number]) [address] [place] [address] 13934 Urea nitrogen [Mass/Vol] 11 mg/dL Normal 5-23 [facility] Comment on above: Performed By: #### T HYR, CBCA, CMP, 30663-3, 78048-8 #### [facility] ([id number]) [address] [place] [address] 66407 HCG ( test) Ql (U)o n 12-27-2023 Beta HCG ( test) Ql (U) Negative Normal NEG [facility] Comment on above: Performed By: #### 2 106-3 #### [facility] ([id number]) [address] [place] [address] 49532 Lactate (P barbara) [Moles/Vol]o n 12-27-2023 LACTATE W/REFLEX 0.8 mmol/L Normal 0.4-2.0 [facility] Comment on above: Result Comment: Result did not trigger repeat Lactate, re-order if needed. Performed By: #### T HYR, CBCA, CMP, 56362-7, 53968-2 #### [facility] ([id number]) [address] [place] [address] 84754 MAGNESIUMon 12-27-2023 Magnesium [Mass/Vol] 2.1 mg/dL Normal 1.8-2.6 [facility] Comment on above: Performed By: #### T HYR, CBCA, CMP, 14625-2, 48456-3 #### [facility] ([id number]) [address] [place] [address] 03619 SARS/FLU A+B/RSV by NAAT/Mol ecularon 12-27-2023 SARS/FLU [...] operators who are performing tests using either [employer] or [employer] systems and is limited to laboratories that [...] repeat. Fact Sheet for Healthcare Providers: https://www.fda.gov/ media/498032/downloa d Fact Sheet for Patients: https://www.fda.gov/ media/401649/downloa d Normal [facility] Comment on above: Performed By: #### C OVFLR #### [facility] ([id number]) [address] [place] [address] [place] [address] THYROID PROFILEon 12-27-2023 Free T4 [Mass/Vol] 0.74 ng/dL Normal 0.61-1.60 [facility] Comment on above: Performed By: #### T HYR, CBCA, CMP, 76964-2, 17672-4 #### [facility] ([id number]) [address] [place] [address] 29477 TSH 1.38 uIU/mL Normal 0.49-4.67 [facility] Comment on above: Performed By: #### T HYR, CBCA, CMP, 66019-9, 47562-9 #### [facility] ([id number]) [address] [place] [address] 47018 URINE CULTUREon 12-27-2023 Bacteria identified Cx Nom (U) CULTURE RESULTS 10-50,000 ORGANISMS/mL NORMAL UROGENITAL TAVON Normal [facility] Comment on above: Performed By: #### 6 30-4 #### [facility] ([id number]) [address] [address], [address] [place] [address] URN MACROSCOPIC NURon 2023 BILIRUBIN LYNETTE Small Abnormal NEG [facility] Comment on above: Performed By: #### N UM #### [facility] ([id number]) [address] [place] [address] 62644 BLOOD/HGB LYNETTE Large Abnormal NEG [facility] Comment on above: Performed By: #### N UM #### [facility] ([id number]) [address] [place] [address] 10777 GLUCOSE LYNETTE Negative Normal NEG [facility] Comment on above: Performed By: #### N UM #### [facility] ([id number]) [address] [place] [address] [place] [address] KETONES LYNETTE Negative Normal NEG [facility] Comment on above: Performed By: #### N UM #### [facility] ([id number]) [address] [place] [address] 37713 LEUKOCYTE ESTERASE LYNETTE Negative Normal NEG [facility] Comment on above: Performed By: #### N UM #### [facility] ([id number]) [address] [place] [address] 29294 NITRITE LYNETTE Negative Normal NEG [facility] Comment on above: Performed By: #### N UM #### [facility] ([id number]) [address] [place] [address] 15407 PH LYNETTE 6.0 Normal 5.0-8.5 [facility] Comment on above: Performed By: #### N UM #### [facility] ([id number]) [address] [place] [address] 45783 PROTEIN LYNETTE 30 mg/dL Abnormal NEG [facility] Comment on above: Performed By: #### N UM #### [facility] ([id number]) [address] [place] [address] 34994 SPECIFIC GRAVITY LYNETTE >=1.030 Normal 1.003-1.035 [facility] Comment on above: Performed By: #### N UM #### [facility] ([id number]) [address] [place] [address] 11203 UROBILINOGEN LYNETTE 0.2 eu/dL Normal <1.1 [facility] Comment on above: Performed By: #### N UM #### [facility] ([id number]) [address] [place] [address] 48529 XR CHEST 2 VWSon 12-27-2023 XR CHEST [...] [place] MD on 12/27/2023 7:52 AM Normal [facility] SARS-CoV-2 (COVID-19) RNA NA A+probe Ql (Resp)on 04-05-2022 SARS-CoV-2 (COVID-19) RNA DYLAN+probe Ql (Unsp spec) Negative [employer] Other CT CSPINE WO Topple Track [address] CT ESTELITA OWENS CON . CT head without contrast CLINICAL: [...] by: CARLA JENNINGS Date: 2022-01-24 13:[address] [facility] Vital Signs Date Time Vital Sign Value Performing Clinician Facility 05-07-2024 09:29-0500 Body height 175.3 cm Zach Chilel MD Work Phone: [employer] [facility] 05-07-2024 09:29-0500 Body mass index (BMI) [Ratio] 29.56 kg/m2 Zach Chilel MD Work Phone: [employer] [facility] 05-07-2024 09:29-0500 Body weight 90.81 kg Zach Chilel MD Work Phone: [employer] 05-07-2024 09:29-0500 Diastolic blood pressure 80 mm[Hg] Zach Chilel MD Work Phone: [employer] 05-07-2024 09:29-0500 Heart rate 90 /min [facility] 05-07-2024 09:29-0500 SaO2% (BldA) [Mass fraction] 100 % Zach Chilel MD [facility] 05-07-2024 09:29-0500 Systolic blood pressure 118 mm[Hg] Zach Chilel MD [facility] 02-09-2024 10:46-0400 Blood Pressure Location Vasquez Sarmini [facility] 02-09-2024 10:46-0400 Diastolic blood pressure 78 mm[Hg] Vasquez Sarmini [facility] 02-09-2024 10:46-0400 Heart rate 70 /min Vasquez [facility] 02-09-2024 10:46-0400 Respiratory rate 18 /min Vasquez Sarmini [facility] 02-09-2024 10:46-0400 Systolic blood pressure 120 mm[Hg] Vasquez Sarmini [facility] 05-03-2022 15:45-0400 Body height 175.26 cm Joi Rivas Other [employer] Other 05-03-2022 15:45-0400 Body mass index (BMI) [Ratio] 29.53 kg/m2 Joi Rivas Other [employer] Other 05-03-2022 15:45-0400 Body temperature 97.5 [degF] Joi Rivas Other [employer] Other 05-03-2022 15:45-0400 Body weight 90.72 kg Joi Rivas Other [employer] Other 05-03-2022 15:45-0400 Diastolic blood pressure 82 mm[Hg] Joi Rivas Other [employer] Other 05-03-2022 15:45-0400 Respiratory rate 18 /min Joi Rivas Other [employer] Other 05-03-2022 15:45-0400 SaO2% (BldA) [Mass fraction] 98 % Joi Rivas Other [employer] Other 05-03-2022 15:45-0400 Systolic blood pressure 116 mm[Hg] Joi Rivas Other [employer] Other 04-05-2022 16:05-0400 Body height 175.26 cm Joi Rivas Other [employer] Other 04-05-2022 16:05-0400 Body mass index (BMI) [Ratio] 29.53 kg/m2 Joi Rivas Other [employer] Other 04-05-2022 16:05-0400 Body temperature 97.7 [degF] Joi Rivas Other [employer] Other 04-05-2022 16:05-0400 Body weight 90.72 kg Joi Rivas Other [employer] Other 04-05-2022 16:05-0400 Diastolic blood pressure 76 mm[Hg] Joi Rivas Other [employer] Other 04-05-2022 16:05-0400 Respiratory rate 18 /min Joi Rivas Other [employer] Other 04-05-2022 16:05-0400 SaO2% (BldA) [Mass fraction] 97 % Joi Rivas Other [employer] Other 04-05-2022 16:05-0400 Systolic blood pressure 107 mm[Hg] Joi Rivas Other [employer] Other 02-08-2022 12:35-0400 Body height 175.26 cm Joi Rivas Other [employer] Other 02-08-2022 12:35-0400 Body mass index (BMI) [Ratio] 29.53 kg/m2 Joi Rivas Other [employer] Other 02-08-2022 12:35-0400 Body temperature 97.5 [degF] Joi Rivas Other [employer] Other 02-08-2022 12:35-0400 Body weight 90.72 kg Joi Rivas Other [employer] Other 02-08-2022 12:35-0400 Diastolic blood pressure 75 mm[Hg] Joi Jarquinault Other [employer] Other 02-08-2022 12:35-0400 Respiratory rate 16 /min Joi Rivas Other [employer] Other 02-08-2022 12:35-0400 SaO2% (BldA) [Mass fraction] 98 % Joi Rivas Other [employer] Other 02-08-2022 12:35-0400 Systolic blood pressure 116 mm[Hg] Joi Rivas Other [employer] Other Encounters Encounter Date Encounter Type Care Provider Facility Start: 05-16-2024 End: 05-16-2024 ambulatory [facility] Start: 05-16-2024 End: 05-16-2024 ambulatory [facility] Start: 05-07-2024 End: 05-07-2024 Office outpatient new 45 minutes Diya Frias MD Work Phone: [facility] Comment on above: Pleuritic chest pain (Primary Dx); Chest pain, unspecified type; Mixed hyperlipidemia; Hypokalemia; Xanthelasma of upper and lower eyelids of right eye Start: 05-07-2024 End: 05-07-2024 ambulatory [facility] Start: 05-06-2024 End: 05-06-2024 Telephone encounter [facility] Start: 05-02-2024 End: 05-02-2024 Chart abstracting Zach Chilel MD Work Phone: [facility] Start: 04-29-2024 End: 04-29-2024 Emergency department patient visit [facility] Start: 04-22-2024 ambulatory Dimitri Mcleod acility:[facility] Start: 03-14-2024 End: 03-14-2024 ambulatory Miles Ha MD Work Phone: [facility] Comment on above: Clostridioides diffi cile infection (Primary Dx) Start: 03-14-2024 End: 03-14-2024 Telemedicine consultation with patient Miles Ha MD Work Phone: [facility] Start: 02-29-2024 End: 02-29-2024 Patient encounter procedure Miles Ha MD Work Phone: [facility] Comment on above: Clostridioides diffi cile infection (Primary Dx) Start: 02-20-2024 End: 02-20-2024 ambulatory [facility] Start: 02-09-2024 End: 02-09-2024 ambulatory [facility] Facility:[facility] Start: 02-09-2024 End: 02-09-2024 Patient encounter procedure Vasquez [facility] Start: 01-31-2024 ambulatory [facility] Facility: [facility] Start: 01-18-2024 End: 01-18-2024 [facility] Start: 12-27-2023 End: 12-28-2023 Emergency department patient visit [facility] Start: 05-03-2022 End: 05-03-2022 ambulatory Joi Rivas Other [employer] [facility] [employer] Other Start: 05-03-2022 Office outpatient vi sit 15 minutes Joi Rivas [facility] Start: 04-05-2022 End: 04-05-2022 ambulatory Joi Rivas Other [employer] Other Start: 04-05-2022 Office outpatient vi sit 25 minutes Joi Rivas [facility] Start: 02-08-2022 End: 02-08-2022 ambulatory Joi Rivas Other [employer] Other Start: 02-08-2022 Office outpatient vi sit 15 minutes Joi Rivas [facility] Start: 01-24-2022 End: 01-24-2022 ambulatory MARIELENA CALVILLO Facility:[facility]1 Procedures Date Procedure Procedure Detail Performing Clinician History of ankle surgery [facility]ose david Fuchs Plan of Treatment Date Care Activity Detail Author Start: 05-07-2025 Adult BMI Screening Adult BMI Screening [facility] Start: 05-07-2025 Tobacco Screening Tobacco Screening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
== END 2024-06-13 11:48 | disposition home or self-care (01) ==
LOC: RAD 11:50
PROVIDERS: PCP Nurse Practitioner Family; Visit Provider Nurse Practitioner Family
DX: R05.9 Cough, unspecified (principal)
CPT/HCPCS: 71046

== ENCOUNTER 2024-11-14 13:38 | Emergency (ER) | payer OTHER, SELFPAY ==
[2024-11-14 13:52] VITALS: BP 119/89; PULSE 93; TEMP 37.3; O2SAT 98; BMI 29.4
--- NOTE | 2024-11-14 13:59 | ED.ABDPAIN1 ---
HPI - Abdominal Pain General Chief Complaint: Abdominal Pain Stated Complaint: abdominal pain Time Seen by Provider: 11/14/24 13:52 Source: patient Mode of arrival: walk-in History of Present Illness HPI narrative: 43-year-old female presents to the emergency department for a chief complaint of abdominal pain and cramping. She has had this for the past few days and she saw her PCP today. Urinalysis was done which showed a small amount of blood in the urine but she states she always has this. She has been nauseous and had some loose stool but no diarrhea or vomiting. Her bilateral lower back hurts and the bilateral lower abdomen hurts. Related Data Home Medications ?Medication ?Instructions ?Recorded ?Confirmed rosuvastatin 10 mg tablet 10 mg PO DAILY 11/14/24 11/14/24 Previous Rx's ?Medication ?Instructions ?Recorded vancomycin 125 mg capsule 125 mg PO Q6H 10 days #40 caps 12/30/23 acetaminophen 300 mg-codeine 30 mg 1 tab PO Q6H PRN pain 5 days #20 11/14/24 tablet tabs Allergies Allergy/AdvReac Type Severity Reaction Status Date / Time cephalexin (From Keflex) Allergy Unknown Hives Verified 11/14/24 13:52 oxycodone Allergy Unknown Hives Verified 11/14/24 13:52 Sulfa (Sulfonamide Allergy Unknown Hives Verified 11/14/24 13:52 Antibiotics) Review of Systems ROS Narrative A ten point review of systems is negative except as noted above. [facility] Medical History (Updated 11/14/24 @ 16:24 by Fran Reyes MD) Anemia ?D64.9 - Anemia, unspecified (ICD-10) Colitis due to Clostridium difficile ?A04.72 - Enterocolitis due to Clostridium difficile, not specified as recurrent (ICD-10) Obese ?E66.9 - Obesity, unspecified (ICD-10) Foot infection ?L08.9 - Local infection of the skin and subcutaneous tissue, unspecified (ICD-10) Migraines ?G43.909 - Migraine, unspecified, not intractable, without status migrainosus (ICD-10) Surgical History H/O: hysterectomy ?Z90.710 - Acquired absence of both cervix and uterus (ICD-10) History of cholecystectomy ?Z90.49 - Acquired absence of other specified parts of digestive tract (ICD-10) Family History (Updated 12/28/23 @ 09:55 by Adela Melchor RN) Mother Family history of COPD (chronic obstructive pulmonary disease) Family history of hypertension Family history of myocardial infarction Family history of stroke Father Family history of COPD (chronic obstructive pulmonary disease) Family history of diabetes mellitus Family history of hypertension Grandmother Family history of cancer Social History (Updated 12/28/23 @ 09:56 by Adela Melchor RN) Within the past year, how often did you have a drink containing alcohol: never Score interpretation: A score less than 3 is consistent with normal alcohol consumption. Smoking status: Current every day smoker Non-prescribed substance use: denies use Highest level of school completed/degree received: some college, no degree Little interest or pleasure in doing things: not at all Feeling down, depressed, or hopeless: not at all Exam Narrative Exam Narrative: Nurses note and vital signs reviewed and patient is not hypoxic. General: The patient appears uncomfortable and in no apparent distress. Skin: Warm, dry, no pallor noted. There is no rash noted. Head: Normocephalic, atraumatic Eye: Normal conjunctiva, no drainage Ears, Nose, Mouth, and Throat: oral mucosa is moist. Nares patent. Cardiovascular: Regular Rate and Rhythm Respiratory: Patient is in no distress, no accessory muscle use, lungs are clear to auscultation, no wheezing, rales or rhonchi Back: non-tender, no CVA tenderness bilaterally to percussion. GI: Nondistended. She has diffuse abdominal tenderness without focality or mass. Musculoskeletal: The patient has no evidence of calf tenderness, no pitting edema, symmetrical pulses noted bilaterally Neurological: A&O, normal speech Psychiatric: Cooperative Constitutional Vital Signs, click to edit/add: Last Vital Signs Temp 99.1 F 11/14/24 13:52 Pulse 72 11/14/24 15:18 Resp 16 11/14/24 15:18 BP 97/68 11/14/24 15:18 Pulse Ox 99 11/14/24 15:18 O2 Del Method Room Air 11/14/24 15:18 Course Vital Signs Vital signs: Vital Signs Temperature 99.1 F 11/14/24 13:52 Pulse Rate 93 H 11/14/24 13:52 Respiratory Rate 20 11/14/24 13:52 Blood Pressure 119/89 11/14/24 13:52 Pulse Oximetry 98 11/14/24 13:52 Oxygen Delivery Method Room Air 11/14/24 13:52 Temperature 99.1 F 11/14/24 13:52 Pulse Rate 72 11/14/24 15:18 Respiratory Rate 16 11/14/24 15:18 Blood Pressure 97/68 11/14/24 15:18 Pulse Oximetry 99 11/14/24 15:18 Oxygen Delivery Method Room Air 11/14/24 15:18 MDM - Abdominal Pain MDM Narrative Medical decision making narrative: Her workup including CAT scan of the abdomen is negative. She is concerned that she might have endometriosis despite having previously had a hysterectomy, and this is certainly a possibility. She wants to see a drier unloader and does not have one so she was referred to Dr. Morgan Henriquez to be treated symptomatically. The rest of her workup as well as negative. Treatment diagnosis and follow-up were discussed with the patient. Differential Diagnosis Differential diagnosis: Likely abdominal pain, calculus of kidney, constipation, diverticulitis, endometriosis, gastroenteritis, pancreatitis and small bowel obstruction Lab Data Attestation: I reviewed the patient's lab results. Labs: Lab Results 11/14/24 11/14/24 Range/Units 14:05 15:40 WBC 14.8 H (4.0-11.0) 10^3/uL RBC 4.49 (4.20-5.40) 10^6/uL Hgb 14.8 (12.0-16.0) g/dL Hct 41.6 (36.0-48.0) % MCV 92.7 (81.0-99.0) fL MCH 33.0 (26.7-34.0) pg MCHC 35.6 H (29.9-35.2) g/dL RDW 13.6 (11.0-15.0) % Plt Count 300 (150-450) 10^3/uL MPV 10.0 (9.5-13.5) fL Neut % (Auto) 68.9 (43.0-75.0) % Lymph % (Auto) 22.9 (20.5-60.0) % [place] % (Auto) 5.9 (1.7-12.0) % Eos % (Auto) 1.7 (0.9-7.0) % Baso % (Auto) 0.3 (0.2-2.0) % Neut # (Auto) 10.2 H (1.4-6.5) 10^3/uL Lymph # (Auto) 3.4 (1.2-3.8) 10^3/uL [place] # (Auto) 0.9 H (0.3-0.8) 10^3/uL Eos # (Auto) 0.3 (0.0-0.7) 10^3/uL Baso # (Auto) 0.1 (0.0-0.1) 10^3/uL Abs Immat Gran (auto) 0.04 H (0.00-0.03) 10^3/uL Imm/Tot Granulo (auto) 0.3 (0.0-0.5) % Sodium 141 (136-145) mmol/L Potassium 4.2 (3.5-5.1) mmol/L Chloride 105 (98-107) mmol/L Carbon Dioxide 24.5 (21.0-32.0) mmol/L Anion Gap 15.7 BUN 20.0 H (7.0-18.0) mg/dL Creatinine 0.92 (0.55-1.02) mg/dL Est GFR ( Amer) >60 (>=60 mL/min/1.73m^2) Est GFR (Non-Af Amer) >60 (>=60 mL/min/1.73m^2) BUN/Creatinine Ratio 21.7 Glucose 112 H (74-106) mg/dL Calcium 8.8 (8.5-10.1) mg/dL Total Bilirubin 0.3 (0.2-1.0) mg/dL Direct Bilirubin <0.1 (0.0-0.2) mg/dL AST 32 (15-37) U/L ALT 35 (14-59) U/L Alkaline Phosphatase 108 (46-116) U/L Total Protein 7.2 (6.4-8.2) g/dL Albumin 3.7 (3.4-5.0) g/dL Globulin 3.5 g/dL Albumin/Globulin Ratio 1.1 Amylase 93 (25-115) U/L Lipase 37.0 (16.0-77.0) U/L Urine Color Yellow (YELLOW) Urine Clarity Clear (CLEAR) Urine pH 6.0 (5.0-9.0) Ur Specific [place] 1.010 (1.005-1.025) Urine Protein Trace (NEG/TRACE) mg/dL Urine Glucose (UA) Negative (NEGATIVE) mg/dL Urine Ketones Negative (NEGATIVE) mg/dL Urine Occult Blood Small A (NEGATIVE) Urine Nitrite Negative (NEGATIVE) Urine Bilirubin Negative (NEGATIVE) Urine Urobilinogen 0.2 (0.2-1.0) EU/dL Ur Leukocyte Esterase Negative (NEGATIVE) Urine RBC 0-2 (0-2) #/HPF Urine WBC 0-2 A (NONE SEEN) #/HPF Ur Squamous Epith Cells Moderate A (NONE/RARE) #/LPF Urine Crystals None seen (None Seen) #/HPF Urine Bacteria Trace A (NONE SEEN) #/HPF Urine Casts None seen (NONE SEEN) #/LPF Urine Mucus None seen (NONE SEEN) Imaging Data CT scan - abdomen: Radiologist's impression: No acute abnormality seen Discharge Plan Discharge Chief Complaint: Abdominal Pain Clinical Impression: Abdominal pain Patient Disposition: Home, Self-Care Time of Disposition Decision: 16:23 Condition: Good Mode of Transportation: Private Vehicle Prescriptions / Home Meds: New acetaminophen-codeine 300-30 mg tablet 1 tab PO Q6H PRN (Reason: pain) 5 Days Qty: 20 0RF No Action vancomycin 125 mg capsule 125 mg PO Q6H 10 Days Qty: 40 0RF rosuvastatin 10 mg tablet 10 mg PO DAILY Print Language: Comoran Instructions: Abdominal Pain (ED) Referrals: Judd Mora DO [Physician, SLIVER LAP MACHINE TENDER] - 1 week JOE MUSA [Primary Care Provider, Family Practice] - 1 week
[2024-11-14] MEDS: 0.9 % SODIUM CHLORIDE 1,000 ML 1000 ML IV (14:18)
[2024-11-14 14:21] LABS: Basophils Absolute Auto 0.1 10^3/uL (0.0-0.1); Basophils Percent Auto 0.3 % (0.2-2.0); Eosinophils Absolute Auto 0.3 10^3/uL (0.0-0.7); Eosinophils Percent Auto 1.7 % (0.9-7.0); Hematocrit 41.6 % (36.0-48.0); Hemoglobin 14.8 g/dL (12.0-16.0); Immature Granulocytes Abs Auto 0.04 10^3/uL (0.00-0.03); Immature Granulocytes Pct Auto 0.3 % (0.0-0.5); Lymphocytes Absolute Auto 3.4 10^3/uL (1.2-3.8); Lymphocytes Percent Auto 22.9 % (20.5-60.0); Mean Corpuscular HGB Conc 35.6 g/dL (29.9-35.2); Mean Corpuscular Volume 92.7 fL (81.0-99.0); Monocytes Absolute Auto 0.9 10^3/uL (0.3-0.8); Monocytes Percent Auto 5.9 % (1.7-12.0); Neutrophils Absolute Auto 10.2 10^3/uL (1.4-6.5); Neutrophils Percent Auto 68.9 % (43.0-75.0); Platelet Count 300 10^3/uL (150-450); Red Blood Count 4.49 10^6/uL (4.20-5.40); Red Cell Distribution Width 13.6 % (11.0-15.0); White Blood Count 14.8 10^3/uL (4.0-11.0)
[2024-11-14] MEDS: KETOROLAC TROMETHAMINE 30 MG/ML VIAL IVP (14:29)
[2024-11-14 14:30] LABS: Anion Gap 15.7; BUN Creatinine Ratio 21.7; Calcium 8.8 mg/dL (8.5-10.1); Carbon Dioxide 24.5 mmol/L (21.0-32.0); Chloride 105 mmol/L (98-107); Estimated GFR (African America >60 (>=60 mL/min/1.73m^2); Estimated GFR (Non-African Ame >60 (>=60 mL/min/1.73m^2); Glucose 112 mg/dL (74-106); Potassium 4.2 mmol/L (3.5-5.1); Sodium 141 mmol/L (136-145)
[2024-11-14 14:35] LABS: Alanine Aminotransferase 35 U/L (14-59); Albumin Globulin Ratio 1.1; Albumin Level 3.7 g/dL (3.4-5.0); Alkaline Phosphatase 108 U/L (46-116); Amylase 93 U/L (25-115); Bilirubin Direct <0.1 mg/dL (0.0-0.2); Bilirubin Total 0.3 mg/dL (0.2-1.0); Globulin 3.5 g/dL; Total Protein 7.2 g/dL (6.4-8.2)
[2024-11-14 14:36] LABS: Aspartate Amino Transferase 32 U/L (15-37)
[2024-11-14 15:18] VITALS: BP 97/68; PULSE 72; O2SAT 99
[2024-11-14 16:01] LABS: Bilirubin Urine NEGATIVE (NEGATIVE); Blood Urine SMALL (NEGATIVE); Clarity Urine CLEAR (CLEAR); Color Urine YELLOW (YELLOW); Glucose Urine UA NEGATIVE (NEGATIVE); Ketones Urine NEGATIVE (NEGATIVE); Leukocyte Esterase Urine NEGATIVE (NEGATIVE); Nitrite Urine NEGATIVE (NEGATIVE); Protein Urine TRACE mg/dL (NEG/TRACE); Urobilinogen Urine 0.2 EU/dL (0.2-1.0)
[2024-11-14 16:12] LABS: Bacteria Urine TRACE #/HPF (NONE SEEN); Cast Seen? NONE SEEN #/LPF (NONE SEEN); Crystals Seen? None Seen #/HPF (None Seen); Mucus Urine NONE SEEN (NONE SEEN); RBC Urine 0-2 #/HPF (0-2); Squamous Epithelial Cell Urine MODERATE #/LPF (NONE/RARE); WBC Urine 0-2 #/HPF (NONE SEEN)
== END 2024-11-14 16:38 | disposition home or self-care (01) ==
PROVIDERS: Emergency Provider Emergency Medicine; PCP Nurse Practitioner Family
DX: R10.30 Lower abdominal pain, unspecified (principal); Z90.710 Acquired absence of both cervix and uterus; Z90.49 Acquired absence of other specified parts of digestive tract; F17.200 Nicotine dependence, unspecified, uncomplicated
CPT/HCPCS: 36415; 74177; 80048; 80076; 81001; 82150; 83690; 85025; 96374; 99285; J1885; Q9967